=== PATIENT | female | born 1970 | race Caucasian/White ===

== ENCOUNTER → 2018-10-30 19:30 | Outpatient (CLI) | payer OTHER, SELFPAY | PROVIDERS: Visit Provider Physician Assistant | DX: N30.01 Acute cystitis with hematuria (principal) | CPT/HCPCS: 87077; 87086; 87147; 87186 ==

== ENCOUNTER 2019-02-11 12:49 | Day surgery (SDC) | payer OTHER, SELFPAY ==
[2019-02-08 07:47] VITALS: BMI 49.6
--- NOTE | 2019-02-11 | PATH_ITS ---
[facility] Accession Number: [id number] . 01 Material submitted: . foot - RIGHT FOOT PLANTAR FIBROMA . 01 Diagnosis: Soft Tissue, Right Foot, Plantar, Excision: Superficial fibromatosis. [facility] 02/15/2019 1647 Local . 01 Electronically signed: . Nory Castro MD, Pathologist NPI- [id number] . 01 Gross description: . The specimen is received in a formalin-filled container, labeled right foot plantar fibroma, and consists of multiple pink-delgado unoriented soft tissues without any grossly identifiable skin present, 2.0 x 1.6 x 0.6 cm in aggregate. The specimen is inked orange. Sectioning reveals pink-delgado grossly unremarkable cut surfaces. The specimen is entirely submitted within cassette A1. ([id number]) /[facility] 02/12/2019 1002 Local . 01 Pathologist provided ICD-10: M72.2 . 01 CPT . 231513 Performed at: [address] [facility] [address], [place], [place] [id number] MD Mitul Wade MD Phone: [phone]
[2019-02-11 15:41] VITALS: BP 145/90; PULSE 63; RESP 21; TEMP 36.2; O2SAT 98; BMI 48.2
[2019-02-11] MEDS: LACTATED RINGERS 1,000 ML 100 ML IV (15:51)
--- NOTE | 2019-02-11 17:31 | PM.PREOP ---
Pre-operative Note Interval Note History & Physical reviewed/Exam performed by Physician: Yes Changes to H&P: No
--- NOTE | 2019-02-11 17:32 | PM.OP.1 ---
Operative Date/Time/Diagnoses Date of procedure: 02/11/19 Time of procedure: 17:32 Pre-op diagnosis: Right foot soft tissue mass, suspect plantar fibroma Post-op diagnosis: same Procedure & Clinicians Procedure: Right foot excision plantar fibroma Same procedure as scheduled: Yes Indications: Painful lump on the bottom of the foot. Conservative measures failed to alleviate the pain and she wished to have surgical intervention at this time. Surgeon: Delfina August Click Yes if Unassisted: Yes Anesthesia Type: MAC +/- Operative Notes Closure Type: primary Specimen(s): other (Soft tissue mass plantar foot sent to pathology for identification.) Estimated Blood Loss (mL): 10 Blood products transfused: none Procedure in detail: The patient was brought to the operating room and placed on the operating table in supine position. Following IV sedation, local anesthesia was attained the patient's foot in the area of the soft tissue mass plantarly. It was then prepped and draped in usual aseptic manner. After verification of anesthesia, an incision was made over the plantar medial foot the incision was deepened through subcutaneous tissues being careful to identify and retract all vital neural and vascular structures. All bleeders were cauterized and ligated as necessary. Immediately the enlarged thickened tissue of the plantar fascia in this area was noted. I was able to reduce it in thickness and send a sample of it off for verification to pathology. Care was taken to make sure that as it was reduced there were no additional nodules or significant thickening present. The area was smoothed and fibers with appropriate thickness still remained. A curette was used to disrupt some of the peripheral thickest areas. The area was irrigated with copious amounts of normal sterile saline. The hallux and lesser toes were removed to verify that this did not appear to be flexor tendon. Four 0 Vicryl was used for the subcutaneous tissues and I Closed skin with 4-0 nylon. The incisions were dressed with a sterile lightly compressive dressing and a postsurgical shoe. The patient was transferred to the PACU with vital signs stable and vascular status intact. Complications: none Post-operative Condition: stable Disposition: PACU Plan for aftercare: Following a period of postoperative monitoring, the patient be discharged home on written and oral postoperative instructions including keeping the dressing dry and intact, avoiding ambulation on the foot, elevating the foot when seated home. DVT prevention techniques have been reviewed. For the 1st postoperative visit the dressing will be changed and close to the 3rd postoperative week we will likely remove the sutures.
[2019-02-11] MEDS: CLINDAMYCIN 600 MG/50 ML PIGGYBACK 50 MG IV (18:05)
--- NOTE | 2019-02-11 18:14 | SUR.OPER ---
Supine on padded OR bed, head on pillow, arms secured on padded arm boards at <90 degrees abduction, legs uncrossed, safety belt at abdomen, tape over blanket over left lower leg.
[2019-02-11] MEDS: BUPIVACAINE 0.5% (PF) VIAL 30 ML INJ (18:21)
[2019-02-11] MEDS: LIDOCAINE 1% W/EPI 20 ML INJ (18:21)
[2019-02-11 18:50] VITALS: BP 111/68; PULSE 75; RESP 20; TEMP 37.2; O2SAT 99
[2019-02-11 19:05] VITALS: BP 128/66; PULSE 62; RESP 20; TEMP 37.2; O2SAT 100
[2019-02-11 19:20] VITALS: BP 120/66; PULSE 70; RESP 16; O2SAT 99
== END 2019-02-11 19:25 | disposition home or self-care (01) ==
PROVIDERS: PCP Physician Assistant Medical; Visit Provider Podiatrist
PROC: (CPT 28060; principal; 2019-02-11 14:30)
DX: M72.2 Plantar fascial fibromatosis (principal); L29.9 Pruritus, unspecified; G47.33 Obstructive sleep apnea (adult) (pediatric); E11.9 Type 2 diabetes mellitus without complications; Z79.84 Long term (current) use of oral hypoglycemic drugs; F32.9 Major depressive disorder, single episode, unspecified; E66.9 Obesity, unspecified; Z68.42 Body mass index [BMI] 45.0-49.9, adult
CPT/HCPCS: 28060; J2250; J2704; J3010

== ENCOUNTER 2020-06-09 20:28 | Emergency (ER) | payer OTHER, SELFPAY ==
[2020-06-09 20:42] VITALS: BP 154/81; PULSE 83; RESP 20; TEMP 38.1; O2SAT 99; BMI 47.0
--- NOTE | 2020-06-09 20:53 | DI.RAD.S_ITS ---
PROCEDURE: XR KNEE RT 3V INDICATIONS: sudden onset severe knee pain without injury, +heat, +tender TECHNIQUE: 3 views of the knee were acquired. COMPARISON: [facility], CR, XR KNEE 1 OR 2VW RT, 12/12/2015, 11:08. [facility], CR, XR KNEE 1 OR 2VW RT, 10/31/2015, 13:32. FINDINGS: Bones: No fractures or dislocations. No suspicious bony lesions. Stable appearance of knee arthroplasty without hardware fracture or periprosthetic loosening. Soft tissues: Mild joint effusion. No suspicious soft tissue calcifications. Mild dystrophic soft tissue calcifications. IMPRESSION: No visualized acute fracture or dislocation. However, if clinical concern and/or pain persist, short interval imaging followup in 7-10 days is recommended, as occult injury cannot be definitively excluded. Dictated by: María Hall M.D. on 06/09/2020 at 21:09 Approved by: María Hall M.D. on 06/09/2020 at 21:09
[2020-06-09 22:55] VITALS: BP 164/79; PULSE 79; RESP 28; TEMP 37.3; O2SAT 99
[2020-06-09 23:15] VITALS: PULSE 68; O2SAT 100
[2020-06-09 23:30] VITALS: BP 134/69; PULSE 68; O2SAT 100
[2020-06-10] VITALS (21 sets, daily range): BP systolic 129–171; BP diastolic 62–86; PULSE 60–72; O2SAT 97–100
[2020-06-10] MEDS: SODIUM CHLORIDE 0.9% 1,000 ML 1000 ML IV (00:47)
[2020-06-10] MEDS: diphenhydrAMINE 50 MG/ML VIAL 25 MG IV (00:48)
[2020-06-10] MEDS: METOCLOPRAMIDE 10 MG/2 ML INJ IV (00:48)
[2020-06-10] MEDS: KETOROLAC 60 MG/2 ML VIAL 15 MG IV (00:48)
[2020-06-10 00:54] LABS: Add Manual Diff / Slide Review NO; Basophils Absolute Auto 0 /uL (0-100); Basophils Percent Auto 0.3 % (0-2); Eosinophils Absolute Auto 100 /uL (0-450); Eosinophils Percent Auto 1.1 % (2-4); Hematocrit 38.1 % (36-46); Hemoglobin 12.7 g/dL (12.0-16.0); Lymphocytes Absolute Auto 2300 /uL (1100-4500); Lymphocytes Percent Auto 19.9 % (25-40); Mean Corpuscular HGB Conc 33.3 % (30-36); Monocytes Absolute Auto 900 /uL (0-900); Monocytes Percent Auto 7.5 % (3-14); Neutrophils Absolute Auto 8200 /uL (1500-7000); Neutrophils Percent Auto 71.2 % (50-75); Platelet Count 245 X10^3/uL (150-400); Red Blood Cell Count 4.09 X10^6/uL (4.0-5.2); Red Cell Distribution Width 12.6 % (11.6-14.8); White Blood Cell Count 11.5 X10^3/uL (4.5-11.0)
[2020-06-10 01:04] LABS: Alanine Aminotransferase 19 IU/L (<35); Albumin 4.3 g/dL (3.5-5.0); Albumin Globulin Ratio 1.4 (1.0-2.8); Alkaline Phosphatase 95 U/L (38-126); Aspartate Aminotransferase 17 IU/L (14-36); BUN Creatinine Ratio 26.4 (6-22); Bilirubin Total 0.6 mg/dL (0.2-1.3); Blood Urea Nitrogen 19 mg/dL (7-17); Carbon Dioxide 31 mmol/L (22-32); Chloride 104 mmol/L (98-107); Estimated Glomerular Filt Rate > 60.0 mL/min (>60); Glucose 148 mg/dL (70-100); HEMOLYSIS < 15 (0-50); Sodium 138 mmol/L (137-145); Total Protein 7.3 g/dL (6.3-8.2)
[2020-06-10 01:15] LABS: Erythrocyte Sedimentation Rate 32 MM/HR (0-20)
--- NOTE | 2020-06-10 03:21 | ED.EXTPRO ---
HPI - Extremity Problem <Nurys Mello MD - Last Filed: 06/10/20 18:38> General Chief complaint: Extremity Problem,Nontraumatic Stated complaint: knee pain since this afternoon Time Seen by Provider: 06/10/20 00:04 Source: patient Mode of arrival: Wheelchair Limitations: no limitations History of Present Illness HPI Narrative: 50-year-old woman with a history of diabetes, hypothyroidism, bipolar disorder, gout presents with severe right knee pain progressive over the last 12-18 hours. She denies any significant trauma. She states that it was worsened while she was working she continued working was a barely able to bear weight at the end of the day. She has noticed increased swelling no particular redness or rash. She also notes that she has had a headache for the last 4 days had a recent MRI with concerns for a pituitary tumor and has a follow-up MRI scheduled in the near future. She does have bilateral knee replacements. The right knee, the affected knee was replaced at [facility] with Dr. Sharma as the surgeon in 2016. Related Data Home Medications Medication Instructions Recorded Confirmed allopurinol 100 mg PO DAILY 02/10/19 02/11/19 hydrocodone-acetaminophen [Winslow] 1 - 2 tab PO Q4-6H PRN 02/10/19 02/10/19 lamotrigine [Lamictal] 200 mg PO BID 02/10/19 02/11/19 levothyroxine [Synthroid] 50 mcg PO DAILY 02/10/19 02/11/19 lithium carbonate 300 mg PO BID 02/10/19 02/11/19 metformin 1,000 mg PO BID 02/10/19 02/11/19 nitrofurantoin monohyd/m-cryst 100 mg PO Q12H 02/10/19 02/11/19 [Macrobid] prazosin 2 mg PO BID 02/10/19 02/11/19 venlafaxine 300 mg PO DAILY 02/10/19 02/11/19 glimepiride 2 mg PO BID 02/11/19 02/11/19 Allergies Allergy/AdvReac Type Severity Reaction Status Date / Time Penicillins [PENICILLINS] Allergy Severe Anaphylaxis Verified 02/11/19 15:33 shrimp Allergy Verified 02/11/19 15:33 strawberry Allergy Verified 02/11/19 15:33 Review of Systems <Nurys Mello MD - Last Filed: 06/10/20 18:38> Review of Systems Narrative: Remainder of review of systems including constitutional, ENT, cardiovascular, respiratory, GI, , musculoskeletal, skin, neurologic and psychiatric systems reviewed and are unremarkable except as noted in HPI. Patient History <Nurys Mello MD - Last Filed: 06/10/20 18:38> Medical History (Updated 06/10/20 @ 07:36 by Nurys Mello MD) Depression Diabetes Gout Hypothyroid Obesity, Class III, BMI 40-49.9 (morbid obesity) Osteoporosis Sleep apnea Surgical History (Updated 02/10/19 @ 13:47 by Joana Barker RN) History of bilateral knee arthroplasty History of surgery Hx of bariatric surgery Hx of eye surgery Hx of tonsillectomy Social History household members: none Smoking Status: Never smoker Smoking Status: Never smoker alcohol intake frequency: 0-2 drinks per day Substance Use Type: does not use Exam <Nurys Mello MD - Last Filed: 06/10/20 18:38> Narrative Exam Narrative: General: Obese, severe right knee pain as well as headache. Able to give a complete and coherent history. Well-nourished well-developed HEENT: Moist mucous membranes, normal sclera with reactive pupils, Respiratory: Lungs are clear to auscultation, no wheezing no rales no rhonchi. Full and symmetrical air movement Cardiac: Regular rate and rhythm no murmurs no bruits Abdomen: Soft, nontender, good bowel tones, no flank pain Skin: Warm and dry, no rashes Neurologic: Grossly neurologically intact with no obvious asymmetries or abnormalities Extremities: No trauma, nicely healed bilateral knee replacement scars. Right knee with moderate effusion exquisitely tender to touch and minimal ability to move and any plane without severe pain Psych: Cooperative, appropriate insight and affect Initial Vital Signs Initial Vital Signs: Vital Signs Temperature 100.5 F H 06/09/20 20:42 Pulse Rate 83 06/09/20 20:42 Respiratory Rate 20 06/09/20 20:42 Blood Pressure 154/81 H 06/09/20 20:42 Pulse Oximetry 99 06/09/20 20:42 <Serena De La Torre DO - Last Filed: 06/10/20 10:09> Initial Vital Signs Initial Vital Signs: Vital Signs Temperature 100.5 F H 06/09/20 20:42 Pulse Rate 83 06/09/20 20:42 Respiratory Rate 20 06/09/20 20:42 Blood Pressure 154/81 H 06/09/20 20:42 Pulse Oximetry 99 06/09/20 20:42 Course <Nurys Mello MD - Last Filed: 06/10/20 18:38> Orders Ordered: Discontinued Medications Diphenhydramine HCl (Diphenhydramine 50 Mg/Ml Vial) 25 mg IV NOW ONE Stop: 06/10/20 00:29 Last Admin: 06/10/20 00:48 Dose: 25 mg Documented by: NASEEM Hydromorphone HCl (Hydromorphone 1 Mg Inj) 1 mg IV NOW ONE Stop: 06/10/20 06:08 Last Admin: 06/10/20 06:11 Dose: 1 mg Documented by: NASEEM Hydromorphone HCl (Hydromorphone 0.5 Mg Inj) 0.5 mg IV Q15MIN PRN PRN Reason: Pain, Last Admin: 06/10/20 10:14 Dose: 0.5 mg Documented by: CY Sodium Chloride (Normal Saline 0.9%) 1,000 mls @ 1,000 mls/hr IV BOLUS ONE Stop: 06/10/20 01:27 Last Infusion: 06/10/20 07:30 Dose: 0 mls/hr Documented by: Admin: 06/10/20 00:47 Dose: 1,000 mls/hr Documented by: NASEEM Vancomycin HCl/Dextrose (Vancomycin) 1,500 mg in 300 mls @ 200 mls/hr IV Q24H RITA Last Infusion: 06/10/20 09:15 Dose: 0 mls/hr Documented by: Admin: 06/10/20 07:41 Dose: 200 mls/hr Documented by: CY Ceftriaxone Sodium/Dextrose (Rocephin) 2 gm in 50 mls @ 100 mls/hr IV NOW ONE Stop: 06/10/20 07:05 Last Infusion: 06/10/20 07:30 Dose: 0 mls/hr Documented by: Admin: 06/10/20 06:52 Dose: 100 mls/hr Documented by: GOLDY Sodium Chloride (Normal Saline 0.9%) 1,000 mls @ 150 mls/hr IV CONT RITA Last Infusion: 06/10/20 10:10 Dose: 0 mls/hr Documented by: Admin: 06/10/20 07:30 Dose: 150 mls/hr Documented by: CY Ketorolac Tromethamine (Ketorolac 60 Mg/2 Ml Vial) 15 mg IV NOW ONE Stop: 06/10/20 00:29 Last Admin: 06/10/20 00:48 Dose: 15 mg Documented by: NASEEM Lidocaine HCl (Lidocaine 1% (Pf)) 2 ml INJ NOW ONE Stop: 06/10/20 03:40 Last Admin: 06/10/20 06:11 Dose: 2 ml Documented by: NASEEM Lidocaine HCl (Lidocaine 1% (Pf)) 2 ml INJ NOW ONE Stop: 06/10/20 06:08 Last Admin: 06/10/20 10:29 Dose: Not Given Documented by: CY Metoclopramide HCl (Metoclopramide 10 Mg/2 Ml Inj) 10 mg IV NOW ONE Stop: 06/10/20 00:29 Last Admin: 06/10/20 00:48 Dose: 10 mg Documented by: NASEEM Oxycodone/Acetaminophen (Oxycodone/Acetaminophen 5/325 Tablet) 2 tab PO NOW ONE Stop: 06/10/20 03:42 Last Admin: 06/10/20 06:42 Dose: Not Given Documented by: GOLDY Vital Signs Vital signs: Vital Signs - 8 hr 06/10/20 01:30 06/10/20 01:59 06/10/20 03:00 Pulse Rate 68 67 Blood Pressure 136/68 139/65 Pulse Oximetry 99 100 06/10/20 03:02 06/10/20 03:30 06/10/20 04:00 Pulse Rate 68 67 62 Blood Pressure 133/63 135/62 Pulse Oximetry 98 98 99 06/10/20 04:30 06/10/20 04:31 06/10/20 05:00 Pulse Rate 62 63 61 Blood Pressure 136/66 140/67 Pulse Oximetry 100 100 100 06/10/20 05:30 06/10/20 06:00 06/10/20 06:30 Pulse Rate 63 60 66 Blood Pressure 137/67 159/72 H 147/73 H Pulse Oximetry 100 97 98 06/10/20 07:00 06/10/20 07:30 06/10/20 09:01 Pulse Rate 65 68 67 Blood Pressure 168/85 H 171/84 H Pulse Oximetry 97 98 98 06/10/20 09:03 Pulse Rate 69 Blood Pressure 146/75 H Pulse Oximetry 97 <Serena De La Torre DO - Last Filed: 06/10/20 10:09> Orders Ordered: Discontinued Medications Diphenhydramine HCl (Diphenhydramine 50 Mg/Ml Vial) 25 mg IV NOW ONE Stop: 06/10/20 00:29 Last Admin: 06/10/20 00:48 Dose: 25 mg Documented by: NASEEM Hydromorphone HCl (Hydromorphone 1 Mg Inj) 1 mg IV NOW ONE Stop: 06/10/20 06:08 Last Admin: 06/10/20 06:11 Dose: 1 mg Documented by: NASEEM Hydromorphone HCl (Hydromorphone 0.5 Mg Inj) 0.5 mg IV Q15MIN PRN PRN Reason: Pain, Last Admin: 06/10/20 10:14 Dose: 0.5 mg Documented by: CY Sodium Chloride (Normal Saline 0.9%) 1,000 mls @ 1,000 mls/hr IV BOLUS ONE Stop: 06/10/20 01:27 Last Infusion: 06/10/20 07:30 Dose: 0 mls/hr Documented by: Admin: 06/10/20 00:47 Dose: 1,000 mls/hr Documented by: NASEEM Vancomycin HCl/Dextrose (Vancomycin) 1,500 mg in 300 mls @ 200 mls/hr IV Q24H RITA Last Infusion: 06/10/20 09:15 Dose: 0 mls/hr Documented by: Admin: 06/10/20 07:41 Dose: 200 mls/hr Documented by: CY Ceftriaxone Sodium/Dextrose (Rocephin) 2 gm in 50 mls @ 100 mls/hr IV NOW ONE Stop: 06/10/20 07:05 Last Infusion: 06/10/20 07:30 Dose: 0 mls/hr Documented by: Admin: 06/10/20 06:52 Dose: 100 mls/hr Documented by: GOLDY Sodium Chloride (Normal Saline 0.9%) 1,000 mls @ 150 mls/hr IV CONT RITA Last Infusion: 06/10/20 10:10 Dose: 0 mls/hr Documented by: Admin: 06/10/20 07:30 Dose: 150 mls/hr Documented by: CY Ketorolac Tromethamine (Ketorolac 60 Mg/2 Ml Vial) 15 mg IV NOW ONE Stop: 06/10/20 00:29 Last Admin: 06/10/20 00:48 Dose: 15 mg Documented by: NASEEM Lidocaine HCl (Lidocaine 1% (Pf)) 2 ml INJ NOW ONE Stop: 06/10/20 03:40 Last Admin: 06/10/20 06:11 Dose: 2 ml Documented by: NASEEM Lidocaine HCl (Lidocaine 1% (Pf)) 2 ml INJ NOW ONE Stop: 06/10/20 06:08 Last Admin: 06/10/20 10:29 Dose: Not Given Documented by: CY Metoclopramide HCl (Metoclopramide 10 Mg/2 Ml Inj) 10 mg IV NOW ONE Stop: 06/10/20 00:29 Last Admin: 06/10/20 00:48 Dose: 10 mg Documented by: NASEEM Oxycodone/Acetaminophen (Oxycodone/Acetaminophen 5/325 Tablet) 2 tab PO NOW ONE Stop: 06/10/20 03:42 Last Admin: 06/10/20 06:42 Dose: Not Given Documented by: GOLDY Reevaluation(s) Reevaluation #1: Patient signed out to myself by Dr. Mello while awaiting Hospitalist callback for [facility]. Patient seen by myself in the department. HPI and ROS reviewed. Orthopedic surgery was consulted and plan for transfer secondary to patient having right knee replaced by Dr. Sharma at [facility] in 2016 and since developing septic joint. Patient's labs support this with elevated ESR and CRP and mild leukocytosis. Patient's fluid results from her arthrocentesis are not completed but at this point show 30,974 wbc's as well as 4274 rbc's. Patient was started on vancomycin and Rocephin. Patient labs or other rooms stable. Plan for OR today per Dr. Damon. Time: 08:39 Consultations Consultation #1: Spoke with Dr. Nizamuddin, who accepts for transfer for septic joint with prior knee replacement. Plan for OR today with orthopedic surgery. Reviewed patients past medical history, recent labs and evaluation here today. Patient has been stable here in the department. Time: 08:56 Vital Signs Vital signs: Vital Signs - 8 hr 06/10/20 01:30 06/10/20 01:59 06/10/20 03:00 Pulse Rate 68 67 Blood Pressure 136/68 139/65 Pulse Oximetry 99 100 06/10/20 03:02 06/10/20 03:30 06/10/20 04:00 Pulse Rate 68 67 62 Blood Pressure 133/63 135/62 Pulse Oximetry 98 98 99 06/10/20 04:30 06/10/20 04:31 06/10/20 05:00 Pulse Rate 62 63 61 Blood Pressure 136/66 140/67 Pulse Oximetry 100 100 100 06/10/20 05:30 06/10/20 06:00 06/10/20 06:30 Pulse Rate 63 60 66 Blood Pressure 137/67 159/72 H 147/73 H Pulse Oximetry 100 97 98 06/10/20 07:00 06/10/20 07:30 06/10/20 09:01 Pulse Rate 65 68 67 Blood Pressure 168/85 H 171/84 H Pulse Oximetry 97 98 98 06/10/20 09:03 Pulse Rate 69 Blood Pressure 146/75 H Pulse Oximetry 97 MDM - Extremity (Nontraumatic) <Nurys Mello MD - Last Filed: 06/10/20 18:38> Lab Data Attestation: I reviewed the patient's lab results. Result diagrams: 06/10/20 00:40 06/10/20 00:40 Labs: Lab Results 06/10/20 06/10/20 06/10/20 Range/Units 00:40 00:40 00:40 WBC 11.5 H (4.5-11.0) X10^3/uL RBC 4.09 (4.0-5.2) X10^6/uL Hgb 12.7 (12.0-16.0) g/dL Hct 38.1 (36-46) % MCV 93.0 (80-100) fL MCH 31.0 (26-34) PG MCHC 33.3 (30-36) % RDW 12.6 (11.6-14.8) % Plt Count 245 (150-400) X10^3/uL Neut % (Auto) 71.2 (50-75) % Lymph % (Auto) 19.9 L (25-40) % [place] % (Auto) 7.5 (3-14) % Eos % (Auto) 1.1 L (2-4) % Baso % (Auto) 0.3 (0-2) % Neut # (Auto) 8200 H (4502-2698) /uL Lymph # (Auto) 2300 (7599-2775) /uL [place] # (Auto) 900 (0-900) /uL Eos # (Auto) 100 (0-450) /uL Baso # (Auto) 0 (0-100) /uL ESR 32 H (0-20) MM/HR Sodium (137-145) mmol/L Potassium (3.4-5.1) mmol/L Chloride (98-107) mmol/L Carbon Dioxide (22-32) mmol/L BUN (7-17) mg/dL Creatinine (0.52-1.04) mg/dL Estimated GFR (>60) mL/min BUN/Creatinine Ratio (6-22) Glucose (70-100) mg/dL Calcium (8.4-10.2) mg/dL Total Bilirubin (0.2-1.3) mg/dL AST (14-36) IU/L ALT (<35) IU/L Alkaline Phosphatase (38-126) U/L C-Reactive Protein 5.4 H (<1.0) mg/dL Total Protein (6.3-8.2) g/dL Albumin (3.5-5.0) g/dL Globulin (1.7-4.1) g/dL Albumin/Globulin Ratio (1.0-2.8) Fluid Color Fluid Appearance Fluid RBC /uL Fld Tot Nucleated Cell /uL Fluid Polynuclear WBCs % Fluid Mononuclear WBCs % Fluid Eosinophils % Fluid Other Cells % Fluid Crystals (NONE) Body Fluid Clot SARS-CoV-2 (PCR) (Negative) 06/10/20 06/10/20 06/10/20 Range/Units 00:40 06:30 06:30 WBC (4.5-11.0) X10^3/uL RBC (4.0-5.2) X10^6/uL Hgb (12.0-16.0) g/dL Hct (36-46) % MCV (80-100) fL MCH (26-34) PG MCHC (30-36) % RDW (11.6-14.8) % Plt Count (150-400) X10^3/uL Neut % (Auto) (50-75) % Lymph % (Auto) (25-40) % [place] % (Auto) (3-14) % Eos % (Auto) (2-4) % Baso % (Auto) (0-2) % Neut # (Auto) (3493-1887) /uL Lymph # (Auto) (0415-4449) /uL [place] # (Auto) (0-900) /uL Eos # (Auto) (0-450) /uL Baso # (Auto) (0-100) /uL ESR (0-20) MM/HR Sodium 138 (137-145) mmol/L Potassium 4.0 (3.4-5.1) mmol/L Chloride 104 (98-107) mmol/L Carbon Dioxide 31 (22-32) mmol/L BUN 19 H (7-17) mg/dL Creatinine 0.72 (0.52-1.04) mg/dL Estimated GFR > 60.0 (>60) mL/min BUN/Creatinine Ratio 26.4 H (6-22) Glucose 148 H (70-100) mg/dL Calcium 10.0 (8.4-10.2) mg/dL Total Bilirubin 0.6 (0.2-1.3) mg/dL AST 17 (14-36) IU/L ALT 19 (<35) IU/L Alkaline Phosphatase 95 (38-126) U/L C-Reactive Protein (<1.0) mg/dL Total Protein 7.3 (6.3-8.2) g/dL Albumin 4.3 (3.5-5.0) g/dL Globulin 3.0 (1.7-4.1) g/dL Albumin/Globulin Ratio 1.4 (1.0-2.8) Fluid Color Yellow Fluid Appearance Cloudy Fluid RBC 4274 /uL Fld Tot Nucleated Cell 63977 /uL Fluid Polynuclear WBCs 94 % Fluid Mononuclear WBCs 6 % Fluid Eosinophils 0 % Fluid Other Cells 0 % Fluid Crystals None present (NONE) Body Fluid Clot No clots present SARS-CoV-2 (PCR) (Negative) 06/10/20 Range/Units 07:35 WBC (4.5-11.0) X10^3/uL RBC (4.0-5.2) X10^6/uL Hgb (12.0-16.0) g/dL Hct (36-46) % MCV (80-100) fL MCH (26-34) PG MCHC (30-36) % RDW (11.6-14.8) % Plt Count (150-400) X10^3/uL Neut % (Auto) (50-75) % Lymph % (Auto) (25-40) % [place] % (Auto) (3-14) % Eos % (Auto) (2-4) % Baso % (Auto) (0-2) % Neut # (Auto) (0515-9458) /uL Lymph # (Auto) (6801-1538) /uL [place] # (Auto) (0-900) /uL Eos # (Auto) (0-450) /uL Baso # (Auto) (0-100) /uL ESR (0-20) MM/HR Sodium (137-145) mmol/L Potassium (3.4-5.1) mmol/L Chloride (98-107) mmol/L Carbon Dioxide (22-32) mmol/L BUN (7-17) mg/dL Creatinine (0.52-1.04) mg/dL Estimated GFR (>60) mL/min BUN/Creatinine Ratio (6-22) Glucose (70-100) mg/dL Calcium (8.4-10.2) mg/dL Total Bilirubin (0.2-1.3) mg/dL AST (14-36) IU/L ALT (<35) IU/L Alkaline Phosphatase (38-126) U/L C-Reactive Protein (<1.0) mg/dL Total Protein (6.3-8.2) g/dL Albumin (3.5-5.0) g/dL Globulin (1.7-4.1) g/dL Albumin/Globulin Ratio (1.0-2.8) Fluid Color Fluid Appearance Fluid RBC /uL Fld Tot Nucleated Cell /uL Fluid Polynuclear WBCs % Fluid Mononuclear WBCs % Fluid Eosinophils % Fluid Other Cells % Fluid Crystals (NONE) Body Fluid Clot SARS-CoV-2 (PCR) Negative (Negative) MDM Narrative Medical decision making narrative: 50-year-old woman with exquisite right knee pain developing over the last 12-18 hours with elevated sed rate and CRP with slight increased white blood cell count. No trauma to the knee. Knee tap is done and reveals per you lint synovial fluid that is sent for Gram stain, culture, cell count and crystals. After knee tap has been accomplished patient is started on vancomycin and ceftriaxone. As her knee replacement surgery was done by Dr. Sharma in 2016 orthopedic surgeon on-call at [facility] requests that we contact him or his group for further help with workup and treatment. Dr Patel continuous improvement coordinator at [facility]. He does not do joint surgery and is unable to accept this patient. Will contact Dr Hauser again. The to orthopedic physicians have communicated directly. Dr. Damon has requested that the patient be transferred to [facility], admitted to the hospitalist Service, he will consult in anticipation surgery this afternoon. COVID test will be done now. <Serena De La Torre, DO - Last Filed: 06/10/20 10:09> Lab Data Labs: Lab Results 06/10/20 06/10/20 06/10/20 Range/Units 00:40 00:40 00:40 WBC 11.5 H (4.5-11.0) X10^3/uL RBC 4.09 (4.0-5.2) X10^6/uL Hgb 12.7 (12.0-16.0) g/dL Hct 38.1 (36-46) % MCV 93.0 (80-100) fL MCH 31.0 (26-34) PG MCHC 33.3 (30-36) % RDW 12.6 (11.6-14.8) % Plt Count 245 (150-400) X10^3/uL Neut % (Auto) 71.2 (50-75) % Lymph % (Auto) 19.9 L (25-40) % [place] % (Auto) 7.5 (3-14) % Eos % (Auto) 1.1 L (2-4) % Baso % (Auto) 0.3 (0-2) % Neut # (Auto) 8200 H (0844-9586) /uL Lymph # (Auto) 2300 (8075-9268) /uL [place] # (Auto) 900 (0-900) /uL Eos # (Auto) 100 (0-450) /uL Baso # (Auto) 0 (0-100) /uL ESR 32 H (0-20) MM/HR Sodium (137-145) mmol/L Potassium (3.4-5.1) mmol/L Chloride (98-107) mmol/L Carbon Dioxide (22-32) mmol/L BUN (7-17) mg/dL Creatinine (0.52-1.04) mg/dL Estimated GFR (>60) mL/min BUN/Creatinine Ratio (6-22) Glucose (70-100) mg/dL Calcium (8.4-10.2) mg/dL Total Bilirubin (0.2-1.3) mg/dL AST (14-36) IU/L ALT (<35) IU/L Alkaline Phosphatase (38-126) U/L C-Reactive Protein 5.4 H (<1.0) mg/dL Total Protein (6.3-8.2) g/dL Albumin (3.5-5.0) g/dL Globulin (1.7-4.1) g/dL Albumin/Globulin Ratio (1.0-2.8) Fluid Color Fluid Appearance Fluid RBC /uL Fld Tot Nucleated Cell /uL Fluid Polynuclear WBCs % Fluid Mononuclear WBCs % Fluid Eosinophils % Fluid Other Cells % Fluid Crystals (NONE) Body Fluid Clot SARS-CoV-2 (PCR) (Negative) 06/10/20 06/10/20 06/10/20 Range/Units 00:40 06:30 06:30 WBC (4.5-11.0) X10^3/uL RBC (4.0-5.2) X10^6/uL Hgb (12.0-16.0) g/dL Hct (36-46) % MCV (80-100) fL MCH (26-34) PG MCHC (30-36) % RDW (11.6-14.8) % Plt Count (150-400) X10^3/uL Neut % (Auto) (50-75) % Lymph % (Auto) (25-40) % [place] % (Auto) (3-14) % Eos % (Auto) (2-4) % Baso % (Auto) (0-2) % Neut # (Auto) (7444-0677) /uL Lymph # (Auto) (9493-3737) /uL [place] # (Auto) (0-900) /uL Eos # (Auto) (0-450) /uL Baso # (Auto) (0-100) /uL ESR (0-20) MM/HR Sodium 138 (137-145) mmol/L Potassium 4.0 (3.4-5.1) mmol/L Chloride 104 (98-107) mmol/L Carbon Dioxide 31 (22-32) mmol/L BUN 19 H (7-17) mg/dL Creatinine 0.72 (0.52-1.04) mg/dL Estimated GFR > 60.0 (>60) mL/min BUN/Creatinine Ratio 26.4 H (6-22) Glucose 148 H (70-100) mg/dL Calcium 10.0 (8.4-10.2) mg/dL Total Bilirubin 0.6 (0.2-1.3) mg/dL AST 17 (14-36) IU/L ALT 19 (<35) IU/L Alkaline Phosphatase 95 (38-126) U/L C-Reactive Protein (<1.0) mg/dL Total Protein 7.3 (6.3-8.2) g/dL Albumin 4.3 (3.5-5.0) g/dL Globulin 3.0 (1.7-4.1) g/dL Albumin/Globulin Ratio 1.4 (1.0-2.8) Fluid Color Yellow Fluid Appearance Cloudy Fluid RBC 4274 /uL Fld Tot Nucleated Cell 49168 /uL Fluid Polynuclear WBCs 94 % Fluid Mononuclear WBCs 6 % Fluid Eosinophils 0 % Fluid Other Cells 0 % Fluid Crystals None present (NONE) Body Fluid Clot No clots present SARS-CoV-2 (PCR) (Negative) 06/10/20 Range/Units 07:35 WBC (4.5-11.0) X10^3/uL RBC (4.0-5.2) X10^6/uL Hgb (12.0-16.0) g/dL Hct (36-46) % MCV (80-100) fL MCH (26-34) PG MCHC (30-36) % RDW (11.6-14.8) % Plt Count (150-400) X10^3/uL Neut % (Auto) (50-75) % Lymph % (Auto) (25-40) % [place] % (Auto) (3-14) % Eos % (Auto) (2-4) % Baso % (Auto) (0-2) % Neut # (Auto) (8594-4886) /uL Lymph # (Auto) (4539-0627) /uL [place] # (Auto) (0-900) /uL Eos # (Auto) (0-450) /uL Baso # (Auto) (0-100) /uL ESR (0-20) MM/HR Sodium (137-145) mmol/L Potassium (3.4-5.1) mmol/L Chloride (98-107) mmol/L Carbon Dioxide (22-32) mmol/L BUN (7-17) mg/dL Creatinine (0.52-1.04) mg/dL Estimated GFR (>60) mL/min BUN/Creatinine Ratio (6-22) Glucose (70-100) mg/dL Calcium (8.4-10.2) mg/dL Total Bilirubin (0.2-1.3) mg/dL AST (14-36) IU/L ALT (<35) IU/L Alkaline Phosphatase (38-126) U/L C-Reactive Protein (<1.0) mg/dL Total Protein (6.3-8.2) g/dL Albumin (3.5-5.0) g/dL Globulin (1.7-4.1) g/dL Albumin/Globulin Ratio (1.0-2.8) Fluid Color Fluid Appearance Fluid RBC /uL Fld Tot Nucleated Cell /uL Fluid Polynuclear WBCs % Fluid Mononuclear WBCs % Fluid Eosinophils % Fluid Other Cells % Fluid Crystals (NONE) Body Fluid Clot SARS-CoV-2 (PCR) Negative (Negative) Discharge Plan Departure Patient Disposition: [facility] Clinical Impression: Septic joint Qualifiers: Septic arthritis location: knee Septic arthritis organism: due to unspecified organism Laterality: right Qualified Code(s): M00.9 - Pyogenic arthritis, unspecified Prescriptions: No Action metformin 500 mg Tablet 1,000 mg PO BID RF: 0 lamotrigine [Lamictal] 200 mg Tablet 200 mg PO BID RF: 0 hydrocodone-acetaminophen [Winslow] 5-325 mg Tablet 1 - 2 tab PO Q4-6H PRN (Reason: Pain) RF: 0 venlafaxine 150 mg Capsule,Extended Release 24hr 300 mg PO DAILY RF: 0 allopurinol 100 mg Tablet 100 mg PO DAILY RF: 0 levothyroxine [Synthroid] 50 mcg Tablet 50 mcg PO DAILY RF: 0 nitrofurantoin monohyd/m-cryst [Macrobid] 100 mg Capsule 100 mg PO Q12H RF: 0 lithium carbonate 300 mg Tablet 300 mg PO BID RF: 0 prazosin 2 mg Capsule 2 mg PO BID RF: 0 glimepiride 2 mg Tablet 2 mg PO BID RF: 0 Referrals: Tiny Zuniga PA-C [Primary Care Provider] -
[2020-06-10 05:36] LABS: C-Reactive Protein Quant 5.4 mg/dL (<1.0)
[2020-06-10] MEDS: LIDOCAINE 1% (PF) 2 ML INJ (06:11)
[2020-06-10] MEDS: HYDROMORPHONE 1 MG INJ IV (06:11)
[2020-06-10] MEDS: CEFTRIAXONE 2 GM/50 ML FROZ.PIGGY IV (06:52)
[2020-06-10 07:14] LABS: Body Fluid Red Blood Cells 4274 /uL; Body Fluid Tot Nucleated Cells 30974 /uL
[2020-06-10 07:24] LABS: Body Fluid Appearance CLOUDY; Body Fluid Clotted? NO CLOTS PRESENT; Body Fluid Color YELLOW
[2020-06-10] MEDS: SODIUM CHLORIDE 0.9% 1,000 ML 150 ML IV (07:30)
[2020-06-10] MEDS: VANCOMYCIN 1,500 MG/300 ML PIGGYBACK 200 MG IV (07:41)
[2020-06-10 08:25] LABS: COVID19 -Nasal RAPID Negative (Negative)
[2020-06-10 09:15] LABS: Crystals Body Fluid - IN-HOUSE NONE Present
[2020-06-10 09:36] LABS: Eosinophils Body Fluid 0 %; Mononuclear WBC Body Fluid 6 %; Other Cells Body Fluid 0 %; Polynuclear WBC Body Fluid 94 %
[2020-06-10] MEDS: HYDROMORPHONE 0.5 MG INJ IV (10:14)
== END 2020-06-10 10:25 | disposition short-term general hospital (02) ==
PROVIDERS: Emergency Medicine; Emergency Provider Emergency Medicine; PCP Physician Assistant Medical
DX: M00.9 Pyogenic arthritis, unspecified (principal); Z20.822 Contact with and (suspected) exposure to COVID-19
CPT/HCPCS: 36415; 73562; 80053; 85025; 85651; 86140; 87070; 87075; 87205; 87635; 89051; 89060; 96361; 96365; 96366; 96367; 96375; 96376; 99282; 99284; C9803; J0696; J1170; J1200; J1885; J2765

== ENCOUNTER 2023-12-10 20:55 | Emergency (ER) | payer OTHER, SELFPAY ==
[2023-12-10 21:13] VITALS: BP 164/97; PULSE 74; RESP 16; TEMP 37.2; O2SAT 98; BMI 39.4
--- NOTE | 2023-12-10 21:18 | DI.RAD.S_ITS ---
PROCEDURE: XR WRIST LT MIN 3V INDICATIONS: pain TECHNIQUE: 3 views of the wrist were acquired. COMPARISON: None. FINDINGS: Bones: No fractures or dislocations. No suspicious bony lesions. Soft tissues: No suspicious soft tissue calcifications. IMPRESSION: No acute left wrist fracture or dislocation. Dictated by: Melo Trevino M.D. on 12/10/2023 at 21:51 Approved by: Melo Trevino M.D. on 12/10/2023 at 21:52
[2023-12-11 00:33] VITALS: BP 158/78; PULSE 59; RESP 18; O2SAT 99
--- NOTE | 2023-12-11 00:40 | ED.EXTPRO ---
HPI - Extremity Problem General Chief complaint: Extremity Problem,Nontraumatic Stated complaint: lt wrist pain, no known injury Time Seen by Provider: 12/11/23 00:40 Source: patient Mode of arrival: Ambulatory Limitations: no limitations History of Present Illness HPI Narrative: 53-year-old female history of obesity, diabetes, gout presents with complaint of left wrist pain. Patient states started in the last day or so. She does not recall any injury or trauma. 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 Is worse with movement. She thinks there might be a little bit of redness but she does not appreciate much. She states there was some swelling comparison to the other wrist. Patient states she has had gout in the past. Was in her lower extremities. She did develop a septic joint in her knee remotely 3 years after that knee was replaced. Patient states no fevers, no chest pain shortness of breath no other GI or urinary symptoms. No numbness or tingling or other injuries or changes. She was concerned as she was supposed to leave on Thursday for a trip to [place]. Related Data Home Medications Medication Instructions Recorded Confirmed allopurinol 100 mg tablet 100 mg PO DAILY 02/10/19 02/11/19 hydrocodone 5 mg-acetaminophen 325 1 - 2 tab PO Q4-6H PRN Pain 02/10/19 02/10/19 mg tablet (V[place]) lamotrigine 200 mg tablet 200 mg PO BID 02/10/19 02/11/19 (Lamictal) levothyroxine 50 mcg tablet 50 mcg PO DAILY 02/10/19 02/11/19 (Synthroid) lithium carbonate 300 mg tablet 300 mg PO BID 02/10/19 02/11/19 metformin 500 mg tablet 1,000 mg PO BID 02/10/19 02/11/19 nitrofurantoin 100 mg PO Q12H 02/10/19 02/11/19 monohydrate/macrocrystals 100 mg capsule (Macrobid) prazosin 2 mg capsule 2 mg PO BID 02/10/19 02/11/19 venlafaxine 150 mg 300 mg PO DAILY 02/10/19 02/11/19 capsule,extended release 24 hr glimepiride 2 mg tablet 2 mg PO BID 02/11/19 02/11/19 Allergies Allergy/AdvReac Type Severity Reaction Status Date / Time Penicillins [PENICILLINS] Allergy Severe Anaphylaxis Verified 12/10/23 21:17 shrimp Allergy Verified 12/10/23 21:17 strawberry Allergy Verified 12/10/23 21:17 Review of Systems Review of Systems ROS Unobtainable: All systems reviewed & are unremarkable except as noted in HPI and below Patient History Medical History Obesity, Class III, BMI 40-49.9 (morbid obesity) Hypothyroid Depression Diabetes Gout Osteoporosis Sleep apnea Surgical History History of bilateral knee arthroplasty Hx of eye surgery Hx of bariatric surgery Hx of tonsillectomy History of surgery Social History household members: none Smoking Status: Never smoker Smoking Status: Never smoker alcohol intake frequency: 0-2 drinks per day Substance Use Type: does not use Exam Narrative Exam Narrative: GENERAL: Alert and oriented x three, female in mild distress. HEENT: Head normocephalic, atraumatic, EOMI, pupils reactive, face symmetric, moist mucous membranes NECK: Supple, full range of motion CARDIOVASCULAR: Regular rate and rhythm without murmurs, rubs or gallops. RESPIRATORY: Breath sounds equal bilaterally, no wheezes rales or rhonchi. ABDOMEN: Soft, nontender. Normoactive bowel sounds all 4 quadrants. No guarding or rebound, rigidity, no mass : No CVA tenderness EXTREMITIES: Normal range of motion, no clubbing. Patient does have some mild edema of the left wrist and forearm in comparison to the opposite, no bony tenderness of the fingers, hand no tenderness over the distal ulna and radius but a little bit more proximally just proximal to the protuberance of the ulna. Questionable erythema. There was no warmth. 2+ radial pulse. Sensation throughout. Cap refills less than 2 seconds. Neurovascularly intact NEUROLOGICAL: Cranial nerves II through XII grossly intact. Moving all extremities SKIN: Warm, dry, no petechiae, no rashes or lesions. Initial Vital Signs Initial Vital Signs: Vital Signs Temperature 98.9 F 12/10/23 21:13 Pulse Rate 74 12/10/23 21:13 Respiratory Rate 16 12/10/23 21:13 Blood Pressure 164/97 H 12/10/23 21:13 Pulse Oximetry 98 12/10/23 21:13 Oxygen Delivery Method Room Air 12/10/23 21:13 Course Orders Ordered: ED Orders 12/10/23 21:18 XR wrist LT min 3V Stat 12/11/23 01:50 CBC Auto Diff [Complete Blood Count AUTO DIFF] Stat CMP [Comprehensive Metabolic Panel] Stat CRP [C-Reactive Protein Quant] Stat ESR [Erythrocyte Sedimentation Rate] Stat Uric Acid Stat Vital Signs Vital signs: Vital Signs - 8 hr 12/10/23 21:13 12/11/23 00:33 12/11/23 03:39 Temperature 98.9 F 97.7 F Pulse Rate 74 59 L 64 Respiratory Rate 16 18 16 Blood Pressure 164/97 H 158/78 H 150/82 H Pulse Oximetry 98 99 98 Oxygen Delivery Method Room Air Room Air Room Air MDM - Extremity (Nontraumatic) Lab Data 12/11/23 01:50 12/11/23 01:50 Labs: Lab Results 12/11/23 Range/Units 01:50 WBC 8.3 (4.5-11.0) X10^3/uL RBC 4.04 (4.0-5.2) X10^6/uL Hgb 13.0 (12.0-16.0) g/dL Hct 38.1 (36-46) % MCV 94.3 (80-100) fL MCH 32.3 (26-34) PG MCHC 34.3 (30-36) % RDW 12.4 (11.6-14.8) % Plt Count 249 (150-400) X10^3/uL Neut % (Auto) 57.4 (50-75) % Lymph % (Auto) 28.4 (25-40) % Burke % (Auto) 10.3 (3-14) % Eos % (Auto) 3.2 (2-4) % Baso % (Auto) 0.7 (0-2) % Neut # (Auto) 4800 (0562-7281) /uL Lymph # (Auto) 2400 (0994-9980) /uL Burke # (Auto) 900 (0-900) /uL Eos # (Auto) 300 (0-450) /uL Baso # (Auto) 100 (0-100) /uL ESR 22 H (0-20) MM/HR Sodium 138 (137-145) mmol/L Potassium 4.0 (3.4-5.1) mmol/L Chloride 105 (98-107) mmol/L Carbon Dioxide 27 (22-32) mmol/L BUN 13 (7-17) mg/dL Creatinine 0.74 (0.52-1.04) mg/dL Estimated GFR > 60 (>60) mL/min BUN/Creatinine Ratio 17.6 (6-22) Glucose 110 H (70-100) mg/dL Uric Acid 4.9 (2.5-6.2) mg/dL Calcium 9.6 (8.4-10.2) mg/dL Total Bilirubin 0.6 (0.2-1.3) mg/dL AST 27 (14-36) IU/L ALT 17 (<35) IU/L Alkaline Phosphatase 98 (38-126) U/L C-Reactive Protein < 0.5 (<1.0) mg/dL Total Protein 7.3 (6.3-8.2) g/dL Albumin 4.3 (3.5-5.0) g/dL Globulin 3.0 (1.7-4.1) g/dL Albumin/Globulin Ratio 1.4 (1.0-2.8) Imaging Data Extremity x-ray #1: Radiologist's Impression: [place] [address] XRay Report Signed Patient: Meghan Puri MR#: [id number] : 1970 Acct:[id number] Age/Sex: 53 / F Date of Service: 12/10/23 Loc: ED Accession Number: [id number] Procedure: XR wrist LT min 3V Ordering Provider: Serena De La Torre D.O. PROCEDURE: XR WRIST LT MIN 3V INDICATIONS: pain TECHNIQUE: 3 views of the wrist were acquired. COMPARISON: None. FINDINGS: Bones: No fractures or dislocations. No suspicious bony lesions. Soft tissues: No suspicious soft tissue calcifications. IMPRESSION: No acute left wrist fracture or dislocation. Dictated by: Melo Trevino M.D. on 12/10/2023 at 21:51 Approved by: Melo Trevino M.D. on 12/10/2023 at 21:52 [facility] Narrative Medical decision making narrative: 53-year-old female history of gout, remote history of septic joint on the right knee several years after a right knee replacement. Has not had any other issues with the joint infections since then. 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 Left wrist x-ray shows no acute change. Patient does have some mild swelling no erythema does not appear to be septic, possibility of gout although there is no warmth and scant erythema at most. After discussion we will obtain labs including CBC, CMP, ESR CRP and uric acid. CBC shows normal white count, hemoglobin of 13 platelets of 249. ESR is 22. Electrolytes are normal, uric acid 4.9, CRP is less than 0.5 Patient states she had an ice pack earlier, she defers anything else for pain. Patient's ESR is elevated but white count, CRP are normal, uric acid is negative. Patient does not have any obvious warmth or erythema to the site, there is some mild swelling. Discussed with patient watchful waiting would have her follow up with strict return precautions. Patient feels comfortable with this plan. Did discuss we will give her a Velcro wrist splint for the short term. On rechecked she has not had any new changes to the area. Discharge Plan Departure Patient Disposition: Home Clinical Impression: Left wrist pain Activity Restrictions/Additional Instructions: Please follow up for recheck in the next 24-48 hours. Your labs show normal white count and CRP, ESR is slightly elevated. Your uric acid is normal today. If you are developing any no warmth, erythema or skin changes, fevers, new weakness numbness and tingling or other new or concerning changes please return to the emergency department. Prescriptions: No Action metformin 500 mg Tablet 1,000 mg PO BID lamotrigine [Lamictal] 200 mg Tablet 200 mg PO BID hydrocodone-acetaminophen [[place]] 5-325 mg Tablet 1 - 2 tab PO Q4-6H PRN (Reason: Pain) venlafaxine 150 mg Capsule,Extended Release 24hr 300 mg PO DAILY allopurinol 100 mg Tablet 100 mg PO DAILY levothyroxine [Synthroid] 50 mcg Tablet 50 mcg PO DAILY nitrofurantoin monohyd/m-cryst [Macrobid] 100 mg Capsule 100 mg PO Q12H lithium carbonate 300 mg Tablet 300 mg PO BID prazosin 2 mg Capsule 2 mg PO BID Rx Instructions: 2mg in morning, 5mg at night time glimepiride 2 mg Tablet 2 mg PO BID Referrals: Tiny Zuniga PA-C [Primary Care Provider] - Stand Alone Forms: Patient Portal/API
[2023-12-11 02:10] LABS: Add Manual Diff / Slide Review NO; Basophils Absolute Auto 100 /uL (0-100); Basophils Percent Auto 0.7 % (0-2); Eosinophils Absolute Auto 300 /uL (0-450); Eosinophils Percent Auto 3.2 % (2-4); Hematocrit 38.1 % (36-46); Lymphocytes Absolute Auto 2400 /uL (1100-4500); Lymphocytes Percent Auto 28.4 % (25-40); Mean Corpuscular HGB Conc 34.3 % (30-36); Mean Corpuscular Hemoglobin 32.3 PG (26-34); Mean Corpuscular Volume 94.3 fL (80-100); Monocytes Absolute Auto 900 /uL (0-900); Monocytes Percent Auto 10.3 % (3-14); Neutrophils Absolute Auto 4800 /uL (1500-7000); Neutrophils Percent Auto 57.4 % (50-75); Platelet Count 249 X10^3/uL (150-400); Red Blood Cell Count 4.04 X10^6/uL (4.0-5.2); Red Cell Distribution Width 12.4 % (11.6-14.8); White Blood Cell Count 8.3 X10^3/uL (4.5-11.0)
[2023-12-11 02:36] LABS: Alanine Aminotransferase 17 IU/L (<35); Albumin 4.3 g/dL (3.5-5.0); Albumin Globulin Ratio 1.4 (1.0-2.8); Alkaline Phosphatase 98 U/L (38-126); Aspartate Aminotransferase 27 IU/L (14-36); BUN Creatinine Ratio 17.6 (6-22); Bilirubin Total 0.6 mg/dL (0.2-1.3); Blood Urea Nitrogen 13 mg/dL (7-17); Calcium 9.6 mg/dL (8.4-10.2); Carbon Dioxide 27 mmol/L (22-32); Chloride 105 mmol/L (98-107); Estimated Glomerular Filt Rate > 60 mL/min (>60); Glucose 110 mg/dL (70-100); HEMOLYSIS < 15 (0-50); Sodium 138 mmol/L (137-145); Total Protein 7.3 g/dL (6.3-8.2); Uric Acid 4.9 mg/dL (2.5-6.2)
[2023-12-11 03:00] LABS: Erythrocyte Sedimentation Rate 22 MM/HR (0-20)
[2023-12-11 03:15] LABS: C-Reactive Protein Quant < 0.5 mg/dL (<1.0)
[2023-12-11 03:39] VITALS: BP 150/82; PULSE 64; RESP 16; TEMP 36.5; O2SAT 98
== END 2023-12-11 03:40 | disposition home or self-care (01) ==
PROVIDERS: Emergency Provider Emergency Medicine; PCP Physician Assistant Medical
DX: M25.532 Pain in left wrist (principal); Z79.899 Other long term (current) drug therapy
CPT/HCPCS: 73110; 80053; 84550; 85025; 85651; 86140; 99283; 99284

== ENCOUNTER 2024-04-07 11:53 | Emergency (ER) | payer OTHER, SELFPAY ==
[2024-04-07] VITALS (17 sets, daily range): BP systolic 110–162; BP diastolic 62–84; PULSE 63–87; RESP 13–22; TEMP 37.4; O2SAT 93–99; BMI 39.4
--- NOTE | 2024-04-07 12:16 | EKG_ITS ---
[address] [address] Test Date: 2024-04-07 Pat Name: Meghan Puri Department: [facility] Room: Gender: Female Licensed Therapist: SUZANNA : 1970 Requested By: Order Number: [id number] Reading MD: Gregor Duran MD Measurements Intervals Leonard Rate: 75 P: 44 SC: 192 QRS: 6 QRSD: 90 T: 37 QT: 384 QTc: 428 Interpretive Statements Normal sinus rhythm Electronically Signed On 04-07-2024 16:25:24 PST by Gregor Duran MD
--- NOTE | 2024-04-07 13:22 | DI.RAD.S_ITS ---
PROCEDURE: XR CHEST 1V INDICATIONS: syncope TECHNIQUE: One view of the chest was acquired. COMPARISON: None. FINDINGS: Surgical changes and devices: None. Lungs and pleura: Lungs are clear. No pleural effusions or pneumothorax. Mediastinum: Mediastinal contours appear normal. Heart size is normal. Bones and chest wall: No suspicious bony lesions. Overlying soft tissues appear unremarkable. IMPRESSION: No acute cardiopulmonary abnormality is seen. Dictated by: Stalin Mccray M.D. on 04/07/2024 at 14:14 Approved by: Stalin Mccray M.D. on 04/07/2024 at 14:14
[2024-04-07 13:50] LABS: Add Manual Diff / Slide Review NO; Basophils Absolute Auto 0 /uL (0-100); Basophils Percent Auto 0.3 % (0-2); Eosinophils Absolute Auto 100 /uL (0-450); Eosinophils Percent Auto 0.9 % (2-4); Hematocrit 38.2 % (36-46); Lymphocytes Absolute Auto 1900 /uL (1100-4500); Lymphocytes Percent Auto 15.8 % (25-40); Mean Corpuscular HGB Conc 34.1 % (30-36); Mean Corpuscular Hemoglobin 31.8 PG (26-34); Mean Corpuscular Volume 93.2 fL (80-100); Monocytes Absolute Auto 1100 /uL (0-900); Monocytes Percent Auto 9.2 % (3-14); Neutrophils Absolute Auto 8900 /uL (1500-7000); Neutrophils Percent Auto 73.8 % (50-75); Platelet Count 249 X10^3/uL (150-400); Red Cell Distribution Width 12.9 % (11.6-14.8); White Blood Cell Count 12.1 X10^3/uL (4.5-11.0)
[2024-04-07 13:58] LABS: Alanine Aminotransferase 20 IU/L (<35); Albumin 4.6 g/dL (3.5-5.0); Albumin Globulin Ratio 1.6 (1.0-2.8); Alkaline Phosphatase 78 U/L (38-126); Aspartate Aminotransferase 22 IU/L (14-36); BUN Creatinine Ratio 26.1 (6-22); Bilirubin Total 0.7 mg/dL (0.2-1.3); Blood Urea Nitrogen 23 mg/dL (7-17); Calcium 10.2 mg/dL (8.4-10.2); Carbon Dioxide 22 mmol/L (22-32); Chloride 105 mmol/L (98-107); Creatine Kinase 89 U/L (30-135); Estimated Glomerular Filt Rate > 60 mL/min (>60); Globulin 2.9 g/dL (1.7-4.1); Glucose 96 mg/dL (70-100); HEMOLYSIS < 15 (0-50); Lipase 84 U/L (23-300); Potassium 4.1 mmol/L (3.4-5.1); Sodium 137 mmol/L (137-145); Total Protein 7.5 g/dL (6.3-8.2)
[2024-04-07 14:09] LABS: Troponin I < 0.012 ng/mL (0.01-0.034)
[2024-04-07 14:28] LABS: Lithium 0.8 mmol/L (0.6-1.2)
[2024-04-07 14:48] LABS: Ur Creatinine Normal (Normal); Ur Specific Gravity Normal (Normal); Urine Amphetamines Negative (Negative); Urine Cocaine Negative (Negative); Urine MDMA Negative (Negative); Urine Methamphetamines Negative (Negative); Urine Opiates Negative (Negative); Urine Phencyclidine Negative (Negative); Urine THC Negative (Negative); Urine pH Normal (Normal)
[2024-04-07 14:49] LABS: Urine Barbiturates Negative (Negative); Urine Benzodiazepines Negative (Negative); Urine Methadone Negative (Negative); Urine Oxycodone Negative (Negative); Urine Tricyclic Antidepressant Negative (Negative)
[2024-04-07 15:19] LABS: Bacteria Urine Many (>30); RBC Urine 10-30/HPF (0-5/HPF); Urine Volume 10mL (spun); WBC Urine 5-10/HPF (0-5/HPF)
[2024-04-07 15:20] LABS: Culture Indicated Urine Specimen Cultured; Squamous Epithelial Cell Urine 1-5 /HPF (0-5/HPF)
[2024-04-07 15:21] LABS: Ictotest Urine Negative (Negative)
--- NOTE | 2024-04-07 16:35 | DI.RAD.S_ITS ---
PROCEDURE: XR ANKLE LT MIN 3V INDICATIONS: fall, pain, swelling TECHNIQUE: 3 views of the ankle were acquired. COMPARISON: None. FINDINGS: Bones: Small possible avulsion fragment adjacent to the lateral malleolus tip. Deformity of the medial malleolus does not appear acute. Ankle mortise otherwise intact. [id number] background degenerative changes. Age-indeterminate bone fragments also seen dorsal to the talus and adjacent to the talonavicular joint. Moderate plantar enthesopathy. Soft tissues: No suspicious calcifications Soft tissue swelling is present. IMPRESSION: Age-indeterminate, possibly avulsion fragments adjacent to the lateral malleolar tip, dorsal to the talus, and adjacent to the talonavicular joint. Likely old deformity at the medial malleolus. Background [id number] degenerative changes. Moderate plantar enthesopathy. Soft tissue swelling is present. If there is high concern for occult injury, consider repeat radiography or cross-sectional imaging. Dictated by: Lenny Loja M.D. on 04/07/2024 at 17:08 Approved by: Lenny Loja M.D. on 04/07/2024 at 17:09
--- NOTE | 2024-04-07 16:39 | ED_ITS ---
HPI - Syncope General Chief Complaint: Syncope Stated Complaint: Blacked out and fell three times Time Seen by Provider: 04/07/24 13:22 Source: patient, RN notes reviewed and old records reviewed Mode of arrival: Wheelchair Limitations: no limitations History of Present Illness HPI narrative: 54-year-old female history of diabetes, gout, mood disorder who presents with complaint of 4 episodes of sort of blacking out. Patient states 3 happen yesterday 1 today. She states she does not actually lose consciousness she was sort of just falls. She states 1 was an episode seated to standing and today she was walking when the 4th occurred. She states she did not really have any preceding symptoms for the 1st 3 episodes has a little bit of dizziness or felt out of her body for the 4th. She states there was never an actual loss of consciousness last about a 2nd or 2 she was responsive throughout. She denies any fevers no headache no chest pain no shortness of breath. Denies any vomiting today but has had some intermittent nausea and vomiting occasionally with the Ozempic. States she did have 3 episodes after taking Zofran yesterday which has a little bit atypical. Denies any issues with bowel movements, no bowel or bladder incontinence. No dysuria urgency or frequency. No new swelling in extremities has some pain in her ankle but states she has been able to ambulate. Patient states has not had any generalized illness or generally felt unwell. She notes that she is taking Ozempic, metformin, allopurinol, Macrobid, lithium, prazosin, naltrexone and recently started terbinafine couple weeks ago for a fungal infection, shows some takes statin and levothyroxine. Patient has had multiple ear surgeries including bilateral knee replacements, eye surgery multiple times, gastric sleeve and a biopsy to evaluate for lymphoma which was negative. States allergic to penicillin, shrimp and strawberries. No tobacco, alcohol or recreational drugs. Related Data Home Medications Medication Instructions Recorded Confirmed allopurinol 100 mg tablet 100 mg PO DAILY 02/10/19 02/11/19 hydrocodone 5 mg-acetaminophen 325 1 - 2 tab PO Q4-6H PRN Pain 02/10/19 02/10/19 mg tablet (Vancleve) lamotrigine 200 mg tablet 200 mg PO BID 02/10/19 02/11/19 (Lamictal) levothyroxine 50 mcg tablet 50 mcg PO DAILY 02/10/19 02/11/19 (Synthroid) lithium carbonate 300 mg tablet 300 mg PO BID 02/10/19 02/11/19 metformin 500 mg tablet 1,000 mg PO BID 02/10/19 02/11/19 nitrofurantoin 100 mg PO Q12H 02/10/19 02/11/19 monohydrate/macrocrystals 100 mg capsule (Macrobid) prazosin 2 mg capsule 2 mg PO BID 02/10/19 02/11/19 venlafaxine 150 mg 300 mg PO DAILY 02/10/19 02/11/19 capsule,extended release 24 hr glimepiride 2 mg tablet 2 mg PO BID 02/11/19 02/11/19 Previous Rx's Medication Instructions Recorded nitrofurantoin 100 mg PO Q12H 7 days #14 caps 04/07/24 monohydrate/macrocrystals 100 mg capsule (Macrobid) Allergies Allergy/AdvReac Type Severity Reaction Status Date / Time Penicillins [PENICILLINS] Allergy Severe Anaphylaxis Verified 04/07/24 12:13 shrimp Allergy Verified 04/07/24 12:13 strawberry Allergy Verified 04/07/24 12:13 Review of Systems Review of Systems ROS Unobtainable: All systems reviewed & are unremarkable except as noted in HPI and below Patient History Medical History Obesity, Class III, BMI 40-49.9 (morbid obesity) Hypothyroid Depression Diabetes Gout Osteoporosis Sleep apnea Surgical History History of bilateral knee arthroplasty Hx of eye surgery Hx of bariatric surgery Hx of tonsillectomy History of surgery Social History household members: none Smoking Status: Never smoker Smoking Status: Never smoker alcohol intake frequency: 0-2 drinks per day Exam Narrative Exam Narrative: GENERAL: Alert and oriented x three, female in mild distress HEENT: Head normocephalic, atraumatic, EOMI, pupils reactive, face symmetric, moist mucous membranes NECK: Supple, full range of motion CARDIOVASCULAR: Regular rate and rhythm without murmurs, rubs or gallops. No JVD. No edema. RESPIRATORY: Breath sounds equal bilaterally, no wheezes rales or rhonchi. ABDOMEN: Soft, nontender. Normoactive bowel sounds all 4 quadrants. No guarding or rebound, rigidity, no mass : No CVA tenderness EXTREMITIES: Normal range of motion, no clubbing or edema. Patient has some over her left ankle particularly lateral malleoli, no ecchymosis or edema appreciated. Other bony tenderness of her extremities. Neurovascularly intact NEUROLOGICAL: Cranial nerves II through XII grossly intact. Moving all extremities SKIN: Warm, dry, no petechiae, no rashes or lesions. Initial Vital Signs Initial Vital Signs: Vital Signs Pulse Rate 87 04/07/24 12:06 Pulse Oximetry 96 04/07/24 12:06 Course Orders Ordered: ED Orders 04/07/24 12:12 EKG-12 Lead Stat 04/07/24 13:22 XR chest 1V Stat 04/07/24 13:38 Complete Blood Count AUTO DIFF Stat Comprehensive Metabolic Panel Stat Lipase Stat [facility] Stat Troponin & CK Cardiac Panel Stat 04/07/24 14:32 Ictotest Urine Stat Urine Culture Stat Urine Drug Screen, Rapid Stat Urine Microscopic Stat 04/07/24 16:35 XR ankle LT min 3V Stat 04/07/24 16:40 CT head/brain wo con Stat Discontinued Medications Nitrofurantoin Macrocrystals (Nitrofurantoin Er 100 Mg Capsule) 100 mg PO NOW ONE Stop: 04/07/24 16:42 Last Admin: 04/07/24 16:57 Dose: 100 mg Documented By: VAISHALI Vital Signs Vital signs: Vital Signs - 8 hr 04/07/24 12:06 04/07/24 12:10 04/07/24 12:30 Temperature 99.4 F Pulse Rate 87 87 76 Respiratory Rate 18 19 Blood Pressure 149/84 H Pulse Oximetry 96 96 95 Oxygen Delivery Method Room Air 04/07/24 13:00 04/07/24 13:30 04/07/24 14:00 Temperature Pulse Rate 71 70 Respiratory Rate 20 22 Blood Pressure 113/63 Pulse Oximetry 93 97 Oxygen Delivery Method 04/07/24 14:00 04/07/24 14:31 04/07/24 14:32 Temperature Pulse Rate 67 82 Respiratory Rate 15 16 Blood Pressure 162/82 H Pulse Oximetry 96 97 Oxygen Delivery Method 04/07/24 14:32 04/07/24 15:00 04/07/24 15:00 Temperature Pulse Rate 69 64 Respiratory Rate 13 16 Blood Pressure 120/68 Pulse Oximetry 99 98 Oxygen Delivery Method 04/07/24 15:30 04/07/24 15:30 04/07/24 16:00 Temperature Pulse Rate 67 66 Respiratory Rate 19 17 Blood Pressure 118/68 Pulse Oximetry 98 96 Oxygen Delivery Method 04/07/24 16:00 04/07/24 16:30 04/07/24 16:30 Temperature Pulse Rate 69 Respiratory Rate 15 Blood Pressure 110/63 123/71 Pulse Oximetry 98 Oxygen Delivery Method 04/07/24 17:00 04/07/24 17:30 04/07/24 18:00 Temperature Pulse Rate 63 63 66 Respiratory Rate 17 15 15 Blood Pressure Pulse Oximetry 98 98 98 Oxygen Delivery Method 04/07/24 18:30 04/07/24 18:38 04/07/24 18:38 Temperature Pulse Rate 66 71 Respiratory Rate 20 21 Blood Pressure 120/62 Pulse Oximetry 98 97 Oxygen Delivery Method MDM - Syncope Lab Data 04/07/24 13:38 04/07/24 13:38 Labs: Lab Results 04/07/24 04/07/24 Range/Units 13:38 14:32 WBC 12.1 H (4.5-11.0) X10^3/uL RBC 4.10 (4.0-5.2) X10^6/uL Hgb 13.0 (12.0-16.0) g/dL Hct 38.2 (36-46) % MCV 93.2 (80-100) fL MCH 31.8 (26-34) PG MCHC 34.1 (30-36) % RDW 12.9 (11.6-14.8) % Plt Count 249 (150-400) X10^3/uL Neut % (Auto) 73.8 (50-75) % Lymph % (Auto) 15.8 L (25-40) % [place] % (Auto) 9.2 (3-14) % Eos % (Auto) 0.9 L (2-4) % Baso % (Auto) 0.3 (0-2) % Neut # (Auto) 8900 H (8437-0612) /uL Lymph # (Auto) 1900 (1984-1883) /uL [place] # (Auto) 1100 H (0-900) /uL Eos # (Auto) 100 (0-450) /uL Baso # (Auto) 0 (0-100) /uL Sodium 137 (137-145) mmol/L Potassium 4.1 (3.4-5.1) mmol/L Chloride 105 (98-107) mmol/L Carbon Dioxide 22 (22-32) mmol/L BUN 23 H (7-17) mg/dL Creatinine 0.88 (0.52-1.04) mg/dL Estimated GFR > 60 (>60) mL/min BUN/Creatinine Ratio 26.1 H (6-22) Glucose 96 (70-100) mg/dL Calcium 10.2 (8.4-10.2) mg/dL Total Bilirubin 0.7 (0.2-1.3) mg/dL AST 22 (14-36) IU/L ALT 20 (<35) IU/L Alkaline Phosphatase 78 (38-126) U/L Total Creatine Kinase 89 (30-135) U/L Troponin I < 0.012 (0.01-0.034) ng/mL Total Protein 7.5 (6.3-8.2) g/dL Albumin 4.6 (3.5-5.0) g/dL Globulin 2.9 (1.7-4.1) g/dL Albumin/Globulin Ratio 1.6 (1.0-2.8) Lipase 84 (23-300) U/L Ur Bilirubin Confirm Negative (Negative) Urine RBC 10-30/hpf H (0-5/HPF) Urine WBC 5-10/hpf H (0-5/HPF) Ur Squamous Epith Cells 1-5 /hpf (0-5/HPF) Urine Bacteria Many (>30) H (None) Ur Culture Indicated? Specimen cultured Vol Urine Centrifuged 10ml (spun) U Opiates 300ng/mL cut Negative (Negative) Ur Oxycodone Screen Negative (Negative) Urine Methadone Screen Negative (Negative) Ur Barbiturates Screen Negative (Negative) U Tricyclic Antidepress Negative (Negative) Ur Phencyclidine Scrn Negative (Negative) Ur Amphetamines Screen Negative (Negative) U Methamphetamines Scrn Negative (Negative) Ur MDMA Scrn (Ecstasy) Negative (Negative) U Benzodiazepines Scrn Negative (Negative) [facility] 0.8 (0.6-1.2) mmol/L Urine Cocaine Screen Negative (Negative) U Marijuana (THC) Screen Negative (Negative) Urine pH Normal (Normal) Urine Specific [place] Normal (Normal) Ur Creatinine Normal (Normal) Urine Dip Bedside Urine Glucose Negative Bedside Urine Bilirubin + 1 Bedside Urine Ketone +/- 5 Urine Specific [place] 1.030 Bedside Urine Occult Blood - Negative Bedside Urine pH 6.0 Bedside Urine Protein +/- 15 Bedside Urine Urobilinogen - Negative Bedside Urine Nitrite - Negative Bedside Urine Leukocytes + 70 Esterase ECG Data Attestation: I personally reviewed and interpreted this ECG as follows: Prior ECG tracings: not available for review Interpretation: Sinus rhythm rate of 75 SC 192 QRS of 90 QTC of 428, no acute ST changes appreciated. No priors for comparison. MDM Narrative Medical decision making narrative: 4-year-old female with what she describes as blackout episodes but no extra loss of consciousness but states she falls down to the ground. Has some ankle denies any major preceding symptoms accept for today felt little bit dizzy. Has not had any arrhythmias here in the department. Patient notes she was started on terbinafine but no other new medication changes she was taking Ozempic. Labs show white count of 12.5 hemoglobin of 13 platelets of 249. No major electrolyte changes sodium potassium chloride are normal calcium is 10.2 glucose is 96 with a creatinine of 0.88 and a BUN 23 LFTs are negative troponins less than 0.012 with a lipase 84. Point of care urine shows negative nitrates positive for leukocyte esterase. microscopy shows 10-30 red cells 5-10 white cells 1-5 squamous many bacteria was sent for culture. UDS was negative lithium is 0.8 Patient had chest x-ray which shows no acute change Left ankle x-ray shows age-indeterminate possible avulsion fragments adjacent to lateral malleolar tip dorsal to the talus adjacent to the talonavicular joint likely old deformity at the medial malleolus background [id number] degenerative changes moderate plantar enthesopathy soft tissue swelling present. Head CT shows no acute change EKG shows normal sinus rhythm. We will place patient on ortho boot and weightbear as tolerated with follow up with the Orthopedic surgery she does have some tenderness on the lateral malleolus. Patient also treated for potential UTI was given a dose of Macrobid here in the department. Discharge Plan Departure Patient Disposition: Home Clinical Impression: UTI (urinary tract infection), Avulsion fracture of left ankle Activity Restrictions/Additional Instructions: Follow up with your primary care, please call to set up an appointment. I would also recommend follow up with the Orthopedic surgery if you are having persistent symptoms there is a small avulsion fracture on your left ankle this maybe old versus new but as your tender in this area would assume it is new and treat as such. You may weightbear as tolerated. Take antibiotics until prescribed [facility] [place]. Please return for fevers, recurrent symptoms, severe headaches, chest pain, shortness of breath, new swelling of your extremities, persistent vomiting or other new or concerning symptoms. Prescriptions: New nitrofurantoin monohyd/m-cryst [Macrobid] 100 mg capsule 100 mg PO Q12H 7 Days Qty: 14 0RF Rx Instructions: must administer with a meal/food No Action metformin 500 mg Tablet 1,000 mg PO BID lamotrigine [Lamictal] 200 mg Tablet 200 mg PO BID hydrocodone-acetaminophen [Vancleve] 5-325 mg Tablet 1 - 2 tab PO Q4-6H PRN (Reason: Pain) venlafaxine 150 mg Capsule,Extended Release 24hr 300 mg PO DAILY allopurinol 100 mg Tablet 100 mg PO DAILY levothyroxine [Synthroid] 50 mcg Tablet 50 mcg PO DAILY nitrofurantoin monohyd/m-cryst [Macrobid] 100 mg Capsule 100 mg PO Q12H lithium carbonate 300 mg Tablet 300 mg PO BID prazosin 2 mg Capsule 2 mg PO BID Rx Instructions: 2mg in morning, 5mg at night time glimepiride 2 mg Tablet 2 mg PO BID Referrals: Karley Sinha MD [Physician] - Tiny Zuniga PA-C [Primary Care Provider] - Stand Alone Forms: Patient Portal/API/Survey
--- NOTE | 2024-04-07 16:40 | DI.CT.S_ITS ---
PROCEDURE: CT HEAD/BRAIN WO CON INDICATIONS: recurrent falls TECHNIQUE: Noncontrast 4.5 mm thick angled axial sections acquired from the foramen magnum to the vertex, with coronal and sagittal reformats. For radiation dose reduction, the following was used: automated exposure control, adjustment of mA and/or kV according to patient size. COMPARISON: None. FINDINGS: Image quality: Diagnostic. CSF spaces: Basal cisterns are patent. No extra-axial fluid collections. Ventricles are normal in size and shape. Brain: No midline shift. No intracranial masses or hemorrhage. [place]-white matter interface is normal. Skull and face: Calvarium and visualized facial bones are intact, without suspicious lesions. Sinuses: Visualized sinuses and mastoids are clear. IMPRESSION: No acute intracranial pathology. Dictated by: Stalin Mccray M.D. on 04/07/2024 at 17:02 Approved by: Stalin Mccray M.D. on 04/07/2024 at 17:03
[2024-04-07] MEDS: NITROFURANTOIN ER 100 MG CAPSULE PO (16:57)
== END 2024-04-07 18:50 | disposition home or self-care (01) ==
PROVIDERS: Emergency Provider Emergency Medicine; PCP Physician Assistant Medical
DX: S82.62XA Displaced fracture of lateral malleolus of left fibula, initial encounter for closed fracture (principal); R11.2 Nausea with vomiting, unspecified; R42 Dizziness and giddiness; N39.0 Urinary tract infection, site not specified; R55 Syncope and collapse; R29.6 Repeated falls; W18.30XA Fall on same level, unspecified, initial encounter
CPT/HCPCS: 36415; 70450; 71045; 73610; 80053; 80178; 80305; 81003; 81015; 82550; 83690; 84484; 85025; 87086; 93005; 93010; 99284

== ENCOUNTER → 2024-07-05 08:09 | Outpatient (CLI) | payer OTHER, SELFPAY ==
--- NOTE | 2024-07-06 08:16 | DI.NM.S_ITS ---
DATE OF SERVICE: 07/05/2024 EXERCISE TREADMILL STRESS TEST REPORT PROCEDURE: Exercise treadmill stress test without imaging. ORDERING PROVIDER: Dr. Paul Trevino. INDICATIONS: The patient is a 54-year-old female with recurrent syncope. FINDINGS: 1. The patient was able to exercise for 5 minutes and 30 seconds on a standard Juan Jose protocol suggesting moderately reduced exercise capacity with an ELIZABETH of +23%, achieving 5.6 METs. 2. She had a normal heart rate and blood pressure response to exercise, achieving a maximum heart rate of 152 bpm (93% of her predicted maximum). 3. She had no chest discomfort or other anginal symptoms. 4. Her resting ECG showed sinus rhythm at 95 bpm with low precordial QRS voltage but normal ST segments. While there is considerable motion artifact on the exercise tracings, there are no obvious ST-segment shifts. The immediate recovery tracings show no significant ST depressions. There were no obvious arrhythmias. IMPRESSION: 1. Normal exercise treadmill stress test for ischemia. 2. Moderately reduced exercise capacity without angina or obvious arrhythmias. Meghan Puri - RS/fn/VT doc#: [id number]/job#: [id number] dd: 07/05/2024 17:30:00 dt: 07/05/2024 17:48:00 DICTATING MD/COPIES TO: Jabari Rodriguez MD; Paul Trevino MD COPIES MNE: SUMEET
== END ==
PROVIDERS: PCP Physician Assistant Medical; Referring Provider Internal Medicine; Visit Provider Internal Medicine
DX: Z84.89 Family history of other specified conditions (principal); R55 Syncope and collapse; R07.9 Chest pain, unspecified
CPT/HCPCS: 93017

== ENCOUNTER → 2024-08-23 08:57 | Outpatient (CLI) | payer OTHER, SELFPAY ==
[2024-08-23 09:49] LABS: Add Manual Diff / Slide Review NO; Basophils Absolute Auto 100 /uL (0-100); Basophils Percent Auto 0.6 % (0-2); Eosinophils Absolute Auto 200 /uL (0-450); Eosinophils Percent Auto 1.8 % (2-4); Hemoglobin 13.6 g/dL (12.0-16.0); Lymphocytes Absolute Auto 2000 /uL (1100-4500); Lymphocytes Percent Auto 22.6 % (25-40); Mean Corpuscular HGB Conc 34.1 % (30-36); Mean Corpuscular Volume 93.8 fL (80-100); Monocytes Absolute Auto 700 /uL (0-900); Monocytes Percent Auto 8.4 % (3-14); Neutrophils Absolute Auto 5800 /uL (1500-7000); Neutrophils Percent Auto 66.6 % (50-75); Platelet Count 290 X10^3/uL (150-400); Red Blood Cell Count 4.26 X10^6/uL (4.0-5.2); Red Cell Distribution Width 12.7 % (11.6-14.8); White Blood Cell Count 8.7 X10^3/uL (4.5-11.0)
[2024-08-23 09:55] LABS: Hemoglobin A1C% w Est Avg Glu 5.1 % (4.0-6.0)
[2024-08-23 10:05] LABS: Creatinine Urine Random 255.95 mg/dL
[2024-08-23 10:17] LABS: HEMOLYSIS < 15 (0-50); Iron 130 ug/dL (37-170); Lithium 0.4 mmol/L (0.6-1.2)
[2024-08-23 10:19] LABS: Alanine Aminotransferase 16 IU/L (<35); Albumin 4.7 g/dL (3.5-5.0); Albumin Globulin Ratio 1.7 (1.0-2.8); Alkaline Phosphatase 76 U/L (38-126); Aspartate Aminotransferase 18 IU/L (14-36); BUN Creatinine Ratio 22.9 (6-22); Bilirubin Total 0.9 mg/dL (0.2-1.3); Blood Urea Nitrogen 19 mg/dL (7-17); Calcium 9.9 mg/dL (8.4-10.2); Carbon Dioxide 25 mmol/L (22-32); Chloride 104 mmol/L (98-107); Cholesterol 131 mg/dL (140-199); Estimated Glomerular Filt Rate > 60 mL/min (>60); Globulin 2.7 g/dL (1.7-4.1); Glucose 118 mg/dL (70-99); HDL Cholesterol 47 mg/dL (40-60); HEMOLYSIS < 15 (0-50); LDL Cholesterol Calculated 60 mg/dL (<100); Potassium 4.3 mmol/L (3.4-5.1); Sodium 139 mmol/L (137-145); Total Protein 7.4 g/dL (6.3-8.2); Triglycerides 119 mg/dL (35-150)
[2024-08-23 10:29] LABS: Percent Iron Saturation 43 % (15-50); Total Iron Binding Capacity 303 ug/dL (265-497); Transferrin 238 mg/dL (206-381)
[2024-08-23 10:49] LABS: Thyroid Stimulating Hormone 1.68 uIU/mL (0.47-4.68)
[2024-08-23 10:54] LABS: Ferritin 71 ng/mL (11-264)
== END ==
PROVIDERS: PCP Student in an Organized Health Care Education/Training Program; Referring Provider Student in an Organized Health Care Education/Training Program; Visit Provider Student in an Organized Health Care Education/Training Program
DX: E11.9 Type 2 diabetes mellitus without complications (principal); E78.5 Hyperlipidemia, unspecified; E03.9 Hypothyroidism, unspecified; Z90.3 Acquired absence of stomach [part of]; E66.01 Morbid (severe) obesity due to excess calories; G47.30 Sleep apnea, unspecified; N95.0 Postmenopausal bleeding; Z79.899 Other long term (current) drug therapy
CPT/HCPCS: 36415; 80053; 80061; 80178; 82043; 82570; 82728; 83036; 83540; 83550; 84443; 85025

== ENCOUNTER 2024-11-04 14:28 | Emergency (ER) | payer OTHER, SELFPAY ==
[2024-11-04] VITALS (14 sets, daily range): BP systolic 104–152; BP diastolic 59–81; PULSE 66–84; RESP 13–24; TEMP 37; O2SAT 95–99; BMI 31.7
--- NOTE | 2024-11-04 15:54 | EKG_ITS ---
[address] [address] Test Date: 2024-11-04 Pat Name: Meghan Puri Department: [facility] Room: Gender: Female Periodontist: MAGGY : 1970 Requested By: Order Number: [id number] Reading MD: Jose Quinn Measurements Intervals [place] Rate: 69 P: 72 WY: 204 QRS: 24 QRSD: 84 T: 56 QT: 388 QTc: 415 Interpretive Statements Normal sinus rhythm Electronically Signed On 11-05-2024 10:31:26 PDT by Jose Quinn
--- NOTE | 2024-11-04 15:55 | DI.RAD.S_ITS ---
PROCEDURE: XR ANKLE RT MIN 3V INDICATIONS: fall TECHNIQUE: 3 views of the ankle were acquired. COMPARISON: [facility], CR, XR ANKLE LT MIN 3V, 04/07/2024, 16:35. FINDINGS/IMPRESSION: [place] type B fracture of the distal fibula, with widening of the medial clear space. Findings indicate unstable fracture features. Dictated by: Gabriel Molina M.D. on 11/04/2024 at 16:27 Approved by: Gabriel Molina M.D. on 11/04/2024 at 16:29
--- NOTE | 2024-11-04 15:55 | DI.RAD.S_ITS ---
PROCEDURE: XR FOOT RT 2V INDICATIONS: fall TECHNIQUE: 2 views of the foot were acquired. COMPARISON: [facility], CR, XR ANKLE RT MIN 3V, 11/04/2024, 15:51. FINDINGS: Severely suboptimal evaluation due to the presence of close overlying the skin. Bones: No fractures or dislocations. No suspicious bony lesions. Diffuse hammertoe deformities . Soft tissues: No tibiotalar joint effusion. Achilles tendon appears normal. IMPRESSION: Severely suboptimal evaluation due to the presence of clothes overlying the skin. No displaced fracture of the feet. Please see same day ankle series for further discussion. Dictated by: Gabriel Molina M.D. on 11/04/2024 at 16:25 Approved by: Gabriel Molina M.D. on 11/04/2024 at 16:27
--- NOTE | 2024-11-04 16:18 | DI.RAD.S_ITS ---
PROCEDURE: XR TIBIA FUBULA RT 2V INDICATIONS: trauma TECHNIQUE: 2 views of the tibia and fibula were acquired. COMPARISON: None. FINDINGS: Bones: No fractures or dislocations. No suspicious bony lesions. Soft tissues: No suspicious soft tissue calcifications or masses. IMPRESSION: No acute bony abnormality. Dictated by: Gabriel Molina M.D. on 11/04/2024 at 16:50 Approved by: Gabriel Molina M.D. on 11/04/2024 at 16:50
--- NOTE | 2024-11-04 19:03 | ED.FALL ---
HPI - Fall General Chief Complaint: Fall Stated Complaint: Syncope - Ankle Pain Time Seen by Provider: 11/04/24 14:40 Source: patient and EMS Mode of arrival: EMS History of Present Illness HPI Narrative: 54-year-old female patient with a history of type 2 diabetes, dyslipidemia, asthma, GERD, hypothyroidism, obesity/bariatric surgery, sleep apnea, depression/anxiety/PTSD and GERD who had an apparent syncopal episode and ground level fall at work around 1300 today with a right ankle injury with reported deformity. Can not bear weight. No other injury including no head injury. Related Data Home Medications ?Medication ?Instructions ?Recorded ?Confirmed venlafaxine 150 mg 300 mg PO DAILY 02/10/19 08/23/24 capsule,extended release 24 hr atorvastatin 20 mg tablet (Lipitor) 20 mg PO DAILY 07/18/24 08/23/24 levothyroxine 50 mcg tablet 100 mcg PO DAILY 07/18/24 08/23/24 (Synthroid) lithium carbonate 300 mg capsule 300 mg PO BID 07/18/24 08/23/24 metformin 500 mg tablet 1,000 mg PO BID 07/18/24 08/23/24 trazodone 150 mg tablet 150 mg PO DAILY 08/23/24 08/23/24 cholecalciferol (vitamin D3) 125 125 mcg PO DAILY 08/26/24 mcg (5,000 unit) tablet (Vitamin D3) naltrexone 4.5 mg capsule (Naltrex) mg PO DAILY 08/26/24 nitrofurantoin 100 mg PO DAILY 08/26/24 monohydrate/macrocrystals 100 mg capsule (Macrobid) ondansetron 4 mg disintegrating 8 mg PO Q8H PRN 08/26/24 tablet prazosin 2 mg capsule 5 mg PO DAILY 08/26/24 Previous Rx's ?Medication ?Instructions ?Recorded semaglutide 2 mg/dose (8 mg/3 mL) 2 mg (0.75 mL) SUBCUT QWEEK #3 mL 08/23/24 subcutaneous pen injector allopurinol 100 mg tablet 100 mg PO DAILY #90 tabs 10/06/24 epinephrine 1 mg/mL injection kit 1 mg IM Q20M PRN anaphylaxis #4 ea 10/06/24 (Epinephrine Professional) hydrocodone 5 mg-acetaminophen 325 1 tab PO TID PRN pain #14 tabs 11/04/24 mg tablet Allergies Allergy/AdvReac Type Severity Reaction Status Date / Time Penicillins (PENICILLINS) Allergy Severe Anaphylaxis Verified 11/04/24 14:58 shrimp Allergy Verified 11/04/24 14:58 strawberry Allergy Verified 11/04/24 14:58 Review of Systems Review of Systems ROS Unobtainable: All systems reviewed & are unremarkable except as noted in HPI and below Musculoskeletal Musculoskeletal: Reports as per HPI Patient History Medical History (Updated 11/04/24 @ 20:46 by Paul Heredia MD) History of endometrial biopsy Anesthesia Rosacea Asthma Allergies Abnormal chest xray PTSD (post-traumatic stress disorder) Knee pain Carpal tunnel syndrome Chicken pox Anemia [place] Ovarian cyst Irregular menstrual cycle Heavy menstrual period Fibroids Frequent UTI BRCA negative GERD (gastroesophageal reflux disease) Colon polyps Hyperlipidemia Obesity, Class III, BMI 40-49.9 (morbid obesity) Hypothyroid Depression Diabetes Gout Osteoporosis Sleep apnea Surgical History (Updated 08/23/24 @ 09:08 by Rukhsana Fisher MD) History of carpal tunnel surgery History of knee surgery History of dilatation and curettage History of foot surgery History of endoscopy History of colonoscopy History of bilateral knee arthroplasty Hx of eye surgery Hx of bariatric surgery Hx of tonsillectomy History of surgery Family History (Updated 07/02/24 @ 21:34 by Leelee House) Father Alcoholism History of emphysema Sister Spina bifida Grandfather History of heart disease Hyperlipidemia Hypertension Grandmother Diabetes mellitus History of heart disease Hypertension Hyperlipidemia Stroke Grandmother Cancer Social History household members: none Smoking Status: Never smoker Smoking Status: Never smoker alcohol intake frequency: 0-2 drinks per day Exam Narrative Exam Narrative: General: Alert and conversant. No distress. Appears well nourished and well hydrated Craniofacial: No evidence of trauma. Nontender and no swelling. Eyes: PERRLA EOMI conjunctiva clear HEENT: . Oropharynx clear with no swelling, exudate or asymmetry of the pharynx. Nares clear. No sinus tenderness Lungs: Clear to auscultation with good air movement. No wheezing, rales or rhonchi. No respiratory distress Cardiac: Regular rate and rhythm with no appreciable murmur or gallop Abdomen: Soft, nontender with no distention or masses. Normal bowel sounds. No rebound or guarding Musculoskeletal: Right ankle swelling, tenderness and lateral deformity with distal neurovascular intact. Otherwise Exam of the extremities, axial spine and ribcage reveals no deformity, bony tenderness or swelling. Range of motion intact Neuro: Alert and oriented. Cranial nerves, motor, sensory and cerebellar all grossly intact. No focal deficit Skin: Warm and normal color. No rashes Psychological: Normal affect and interaction. No evidence of delusion or psychosis. Normal mood. Initial Vital Signs Initial Vital Signs: Vital Signs Temperature 98.6 F 11/04/24 14:46 Pulse Rate 84 11/04/24 14:46 Respiratory Rate 16 11/04/24 14:46 Blood Pressure 113/59 L 11/04/24 14:46 Pulse Oximetry 96 11/04/24 14:46 Oxygen Delivery Method Room Air 11/04/24 14:46 Course Course Course Narrative: 19:40 I discussed the patient's care with Dr. Nur, orthopedics who agrees with splinting and then follow up as an outpatient in his clinic for right distal fibula fracture. 20:45 Stirrup splint being placed by nurse and tech. Patient will be discharged home with splint, crutches, elevation ice. Prescription for Vicodin. Follow up with Orthopedics within the next 5 days Orders Ordered: Discontinued Medications Hydrocodone Bitart/Acetaminophen (Hydrocodone/Acet 5/325 Prepack) 1 bottle MISC DIRECTED ONE Stop: 11/04/24 21:47 Last Admin: 11/04/24 22:02 Dose: 1 bottle Documented By: ROCIO Hydromorphone HCl (Hydromorphone Hcl 0.5 Mg/0.5 Ml Syringe) 0.5 mg IV NOW ONE Stop: 11/04/24 19:18 Last Admin: 11/04/24 19:23 Dose: 0.5 mg Documented By: ALEYDA Ketorolac Tromethamine (Ketorolac 30 Mg/Ml Vial) 30 mg IV NOW ONE Stop: 11/04/24 19:18 Last Admin: 11/04/24 19:22 Dose: 30 mg Documented By: ALEYDA Vital Signs Vital signs: Vital Signs - 8 hr 11/04/24 18:00 11/04/24 18:00 11/04/24 18:30 Pulse Rate 70 72 Respiratory Rate 14 24 Blood Pressure 126/75 Pulse Oximetry 98 97 11/04/24 18:30 11/04/24 19:00 11/04/24 19:00 Pulse Rate 68 Respiratory Rate 13 Blood Pressure 125/76 118/78 Pulse Oximetry 98 11/04/24 19:30 11/04/24 19:30 11/04/24 20:00 Pulse Rate 67 70 Respiratory Rate 20 Blood Pressure 145/76 H Pulse Oximetry 97 96 11/04/24 20:01 11/04/24 20:01 11/04/24 20:30 Pulse Rate 71 66 Respiratory Rate 20 20 Blood Pressure 152/67 H Pulse Oximetry 95 97 11/04/24 20:30 Pulse Rate Respiratory Rate Blood Pressure 140/79 Pulse Oximetry MDM - Fall Medical Records Medical records narrative: Patient had an apparent brief syncopal episode with negative workup. EKG and lab work reassuring. Vital signs reassuring. However and falling she sustained a distal fibular fracture with widening of the ankle mortise. I discussed this with Orthopedics. We have splinted the fracture and given her instructions to follow up with surgery. This will probably need ORIF. Otherwise she is to use elevation, splint, cold packs and pain medication. Follow up with Orthopedics. Also follow up with her doctor regarding the syncopal episode. May need further evaluation. Imaging Data Right ankle x-ray: Attestation: I personally reviewed and interpreted this imaging study as follows: My Impression: Fracture of the distal fibula/lateral malleolus with joint space widening Radiologist's Impression: FINDINGS/IMPRESSION: Oneill type B fracture of the distal fibula, with widening of the medial clear space. Findings indicate unstable fracture features. Right foot x-ray: Attestation: I personally reviewed and interpreted this imaging study as follows: My Impression: Distal fibula fracture. No foot fracture noted. Radiologist's Impression: IMPRESSION: Severely suboptimal evaluation due to the presence of clothes overlying the skin. No displaced fracture of the feet. Please see same day ankle series for further discussion. Right tib-fib x-ray: My Impression: No fracture other than ankle fracture already noted on ankle films Radiologist's Impression: IMPRESSION: No acute bony abnormality. ECG Data Attestation: I personally reviewed and interpreted this ECG as follows: (Normal sinus rhythm. Normal axis and intervals. Rate 69. No ischemic changes) [facility] Narrative Medical decision making narrative: Patient had Discharge Plan Departure Patient Disposition: Home Clinical Impression: Ankle fracture, Syncope Instructions: DI for Syncope in Adults (Fainting), Ankle Fracture Activity Restrictions/Additional Instructions: Plan: Splint, ice, elevation and crutches, not weight-bearing. Ibuprofen and hydrocodone. Follow up with Orthopedics within the next 4-6 days. Otherwise rest and hydration and follow up with your doctor regarding syncopal episode. May need further evaluation by Cardiology Prescriptions: New hydrocodone-acetaminophen 5-325 mg tablet 1 tab PO TID PRN (Reason: pain) Qty: 14 0RF No Action trazodone 150 mg tablet 150 mg PO DAILY semaglutide 2 mg/dose (8 mg/3 mL) pen injector 2 mg SUBCUT QWEEK Qty: 3 3RF nitrofurantoin monohyd/m-cryst [Macrobid] 100 mg capsule 100 mg PO DAILY Rx Instructions: must administer with a meal/food Naltrex 4.5 mg capsule PO DAILY prazosin 2 mg capsule 5 mg PO DAILY Rx Instructions: 5mg at night time ondansetron 4 mg tablet,disintegrating 8 mg PO Q8H PRN cholecalciferol (vitamin D3) [Vitamin D3] 125 mcg (5,000 unit) tablet 125 mcg PO DAILY allopurinol 100 mg tablet 100 mg PO DAILY Qty: 90 3RF Epinephrine Professional 1 mg/mL kit 1 mg IM Q20M PRN (Reason: anaphylaxis) Qty: 4 2RF Rx Instructions: for 2 doses atorvastatin [Lipitor] 20 mg tablet 20 mg PO DAILY lithium carbonate 300 mg capsule 300 mg PO BID venlafaxine 150 mg Capsule,Extended Release 24hr 300 mg PO DAILY levothyroxine [Synthroid] 50 mcg tablet 100 mcg PO DAILY metformin 500 mg tablet 1,000 mg PO BID Referrals: Jhonatan Nur MD [Physician, Orthopedic Surgery] Referral Note: Right distal fibula fracture with widened mortise Follow up within 5 days Clinical Impression: Ankle fracture Rukhsana Fisher MD [Primary Care Provider, Family Practice] Stand Alone Forms: Patient Portal/API
[2024-11-04] MEDS: KETOROLAC 30 MG/ML VIAL IV (19:22)
[2024-11-04] MEDS: HYDROCODONE/ACET 5/325 PREPACK 1 BOTTLE MISC (22:02)
== END 2024-11-04 22:00 | disposition home or self-care (01) ==
PROVIDERS: Emergency Provider Emergency Medicine; PCP Student in an Organized Health Care Education/Training Program
DX: S82.891A Other fracture of right lower leg, initial encounter for closed fracture (principal); W18.30XA Fall on same level, unspecified, initial encounter; R55 Syncope and collapse
CPT/HCPCS: 73590; 73610; 73620; 93005; 96374; 96375; 99284; J1171; J1885

== ENCOUNTER → 2024-12-14 18:55 | Outpatient (CLI) | payer OTHER, SELFPAY ==
--- NOTE | 2024-12-14 18:56 | DI.MRI.S_ITS ---
PROCEDURE: MR HEAD/BRAIN WO/W CON INDICATIONS: Syncopy with multiple broken bones TECHNIQUE: Noncontrast axial T1 spin echo, axial T2 fast spin echo, sagittal and axial FLAIR, coronal T2 fast spin echo, axial gradient echo, axial diffusion and ADC through the brain. After the administration of contrast, axial and coronal and sagittal 3D VIBE or T1 spin echo with fat saturation through the brain. COMPARISON: None. FINDINGS: Image quality: Excellent. CSF Spaces: Basal cisterns are patent. No extra-axial fluid collections. Ventricles are normal in size and shape. Brain: No midline shift. No intracranial bleeds or masses. No abnormal intracranial enhancement. The brainstem appears normal. Diffusion-weighted images demonstrate no acute infarct. No chronic ischemic insults. Normal intravascular flow voids are present. Skull and face: Calvarial marrow is normal in signal. Orbits appear normal. Sinuses: Sinuses and mastoids appear clear. IMPRESSION: Normal for age, source of syncope and trauma after syncope is not identified. Dictated by: Leo Clements M.D. on 12/15/2024 at 9:19 Approved by: Leo Clements M.D. on 12/15/2024 at 9:20
== END ==
LOC: MRI 18:55
PROVIDERS: PCP Student in an Organized Health Care Education/Training Program; Referring Provider Student in an Organized Health Care Education/Training Program; Visit Provider Student in an Organized Health Care Education/Training Program
DX: R55 Syncope and collapse (principal)
CPT/HCPCS: 70553; A9579

== ENCOUNTER → 2025-01-02 10:41 | Outpatient (CLI) | payer OTHER, SELFPAY ==
[2025-01-02 11:50] LABS: Add Manual Diff / Slide Review NO; HEMOLYSIS 20 (0-50); Hematocrit 35.5 % (36-46); Hemoglobin 12.1 g/dL (12.0-16.0); Iron 103 ug/dL (37-170); Lymphocytes Absolute Auto 1900 /uL (1100-4500); Mean Corpuscular HGB Conc 34.1 % (30-36); Mean Corpuscular Hemoglobin 32.3 PG (26-34); Mean Corpuscular Volume 94.5 fL (80-100); Platelet Count 231 X10^3/uL (150-400)
[2025-01-02 11:56] LABS: Alanine Aminotransferase 18 IU/L (<35); Albumin 3.9 g/dL (3.5-5.0); Albumin Globulin Ratio 1.4 (1.0-2.8); Alkaline Phosphatase 109 U/L (38-126); Blood Urea Nitrogen 14 mg/dL (7-17); Calcium 9.5 mg/dL (8.4-10.2); Carbon Dioxide 24 mmol/L (22-32); Chloride 108 mmol/L (98-107); Estimated Glomerular Filt Rate > 60 mL/min (>60); Globulin 2.8 g/dL (1.7-4.1); Glucose 103 mg/dL (70-99); HEMOLYSIS < 15 (0-50); Potassium 4.2 mmol/L (3.4-5.1); Sodium 140 mmol/L (137-145); Total Protein 6.7 g/dL (6.3-8.2)
[2025-01-02 12:01] LABS: Percent Iron Saturation 38 % (15-50); Total Iron Binding Capacity 271 ug/dL (265-497); Transferrin 206 mg/dL (206-381)
[2025-01-02 12:21] LABS: Thyroid Stimulating Hormone 0.956 uIU/mL (0.47-4.68)
[2025-01-02 12:29] LABS: Ferritin 66 ng/mL (11-264)
[2025-01-02 14:59] LABS: Folate 6.3 ng/mL (2.76-20.0); Vitamin B12 218 pg/mL (239-931)
== END ==
PROVIDERS: PCP Student in an Organized Health Care Education/Training Program; Referring Provider Student in an Organized Health Care Education/Training Program; Visit Provider Student in an Organized Health Care Education/Training Program
DX: R55 Syncope and collapse (principal)
CPT/HCPCS: 36415; 80053; 82607; 82728; 82746; 83540; 83550; 84443; 85025

== ENCOUNTER → 2025-02-21 08:40 | Outpatient (CLI) | payer OTHER, SELFPAY ==
[2025-02-21 09:40] LABS: Add Manual Diff / Slide Review NO; Hematocrit 37.8 % (36-46); Hemoglobin 12.9 g/dL (12.0-16.0); Lymphocytes Absolute Auto 1300 /uL (1100-4500); Mean Corpuscular HGB Conc 34.1 % (30-36); Mean Corpuscular Hemoglobin 32.0 PG (26-34); Mean Corpuscular Volume 93.8 fL (80-100); Platelet Count 238 X10^3/uL (150-400)
[2025-02-21 10:22] LABS: Alanine Aminotransferase 18 IU/L (<35); Albumin 4.4 g/dL (3.5-5.0); Albumin Globulin Ratio 1.6 (1.0-2.8); Alkaline Phosphatase 99 U/L (38-126); Blood Urea Nitrogen 13 mg/dL (7-17); Calcium 10.0 mg/dL (8.4-10.2); Carbon Dioxide 25 mmol/L (22-32); Chloride 106 mmol/L (98-107); Cholesterol 137 mg/dL (140-199); Estimated Glomerular Filt Rate > 60 mL/min (>60); Globulin 2.8 g/dL (1.7-4.1); Glucose 91 mg/dL (70-99); HDL Cholesterol 56 mg/dL (40-60); HEMOLYSIS < 15 (0-50); Potassium 4.5 mmol/L (3.4-5.1); Sodium 141 mmol/L (137-145); Total Protein 7.2 g/dL (6.3-8.2); Triglycerides 85 mg/dL (35-150)
[2025-02-21 10:23] LABS: Hemoglobin A1C% w Est Avg Glu 5.1 % (4.0-6.0)
[2025-02-21 10:46] LABS: Microalbumi Creatinin Ratio Ur 6.0 ug/mg CR (<30)
[2025-02-21 10:52] LABS: Thyroid Stimulating Hormone 1.44 uIU/mL (0.47-4.68)
[2025-02-21 10:53] LABS: Cortisol AM (Before 10AM) 10.8 ug/dL (4.46-22.7)
[2025-02-21 11:11] LABS: Vitamin B12 440 pg/mL (239-931)
[2025-02-23 12:40] LABS: SS A Ro Sjogrens Antibody < 0.2 AI (0.0-0.9); SS B La Sjogrens Antibody < 0.2 AI (0.0-0.9)
[2025-02-24 06:36] LABS: ANA Screen, IFA Negative (.)
[2025-02-26 19:40] LABS: Acetylcholine Modulating AB 8 % (0-45)
== END ==
PROVIDERS: PCP Student in an Organized Health Care Education/Training Program; Referring Provider Student in an Organized Health Care Education/Training Program; Visit Provider Student in an Organized Health Care Education/Training Program
DX: E11.9 Type 2 diabetes mellitus without complications (principal); I10 Essential (primary) hypertension; E78.5 Hyperlipidemia, unspecified; I95.9 Hypotension, unspecified; E03.9 Hypothyroidism, unspecified; E53.8 Deficiency of other specified B group vitamins
CPT/HCPCS: 36415; 80053; 80061; 82043; 82533; 82570; 82607; 83036; 83519; 84443; 85025; 85651; 86038; 86235; 86430